=== PATIENT | male | born 1950 | race Caucasian/White ===

== ENCOUNTER 2019-06-03 06:06 | Emergency (ER) | payer MEDICARE, OTHER ==
[~2019-06-03] VITALS: Ht 170.2 cm; Wt 71.2 kg
[~2019-06-03 06:06] MED LIST: CENTRUM COMPLE1 EACH PO; PANTOPRAZOLE SO40 MG PO; VITAMIN D32000 UNIT PO
[2019-06-03 06:49] LABS: BILIRUBIN,URINE NEGATIVE (NEGATIVE); CLARITY,URINE CLEAR (CLEAR); COLOR,URINE YELLOW (YELLOW); KETONES,URINE NEGATIVE (NEGATIVE); LEUKOCYTE ESTERASE ,URINE NEGATIVE (NEGATIVE); NITRITE,URINE NEGATIVE (NEGATIVE); PROTEIN,URINE DIPSTICK NEGATIVE (NEGATIVE); URINE UROBILINOGEN 0.2 mg/dL (0.2 - 1)
[2019-06-03 07:06] LABS: BACTERIA,URINE RARE /HPF; EPITHELIAL CELLS,URINE FEW /LPF
[2019-06-03] MEDS ORDERED: KETOROLAC TROMETHAMINE 30 MG/ML VIAL IV STA (07:18)
[2019-06-03] MEDS ORDERED: SODIUM CHLORIDE 0.9% 1000ML 1,000 ML IV STA (07:18)
[2019-06-03] MEDS ORDERED: ONDANSETRON HCL INJ 2MG/ML 2ML 2 MG/ML VIAL IV STA (07:18)
[2019-06-03] MEDS ORDERED: FAMOTIDINE 20 MG/2 ML VIAL IV STA (07:25)
[2019-06-03] MEDS ORDERED: FAMOTIDINE 20 MG/2 ML VIAL IV ONE (07:32)
[2019-06-03 07:36] LABS: BASOPHILS % 0.4 % (0.0-1.0); EOSINOPHILS % 0.1 % (0.0-6.0); HEMATOCRIT 44.7 % (38.2-49.6); HEMOGLOBIN 15.6 g/dL (14.0-18.0); LYMPHOCYTES # (AUTO) 0.8 (1.0-3.2); LYMPHOCYTES % 7.6 % (18.0-39.1); MEAN CORPUSCULAR HEMOGLOBIN 31.1 pg (28-32); MEAN CORPUSCULAR HGB CONC 34.9 g/dL (31-35); MEAN CORPUSCULAR VOLUME 89.2 fL (81-99); MONOCYTES # (AUTO) 0.6 (0.2-0.8); MONOCYTES % 5.8 % (4.4-11.3); NEUTROPHILS % 85.7 % (38.7-80.0); PLATELET COUNT 162 x10e3/uL (140-360); RED BLOOD COUNT 5.01 x10e6/uL (4.3-5.7); RED CELL DISTRIBUTION WIDTH 12.8 % (11.7-14.4)
[2019-06-03] MEDS ORDERED: CEFTRIAXONE SOD 1 GM/NS 50 ML 50 ML IV ONE (07:45)
[2019-06-03 07:52] LABS: ALANINE AMINOTRANSFERASE 32 IU/L (0-55); ALBUMIN/GLOBULIN RATIO 1.3 (0.8-2.0); ALKALINE PHOSPHATASE 66 IU/L (40-150); ANION GAP 13.3 mmol/L (8-16); BLOOD UREA NITROGEN 15 mg/dL (7-26); BUN/CREATININE RATIO 18 (6-25); CALCIUM 9.3 mg/dL (8.4-10.2); CARBON DIOXIDE 25 mmol/L (22-29); CHLORIDE 102 mmol/L (98-107); CREATININE, SERUM 0.85 mg/dL (0.72-1.25); EST GLOMERULAR FILTRATION RATE > 60 ML/MIN (60-); GLUCOSE 127 mg/dL (74-118); POTASSIUM 4.3 mmol/L (3.5-5.1); SODIUM 136 mmol/L (136-145)
--- NOTE | 2019-06-03 08:49 | Diagnostic Imaging Report ---
EXAMINATION: CT of the abdomen and pelvis without contrast. TECHNIQUE: Spiral CT images of the abdomen and pelvis were performed from the lung bases to the lesser trochanters. No intravenous contrast was given per renal stone protocol. Coronal and sagittal reformatted images were obtained. COMPARISON: None. CLINICAL HISTORY:Right flank pain DISCUSSION: ABSENCE OF INTRAVENOUS CONTRAST DECREASES SENSITIVITY FOR DETECTION OF FOCAL LESIONS AND VASCULAR PATHOLOGY. ABDOMEN/PELVIS: LOWER THORAX: Mild bilateral lower lobe bronchiectasis, likely postinfectious. No pleural or pericardial effusion. HEPATOBILIARY:1.5 cm low-attenuation lesion in segment 3 comparison average internal attenuation 0 Hounsfield units, likely a cyst. Otherwise no focal hepatic lesion. No intrahepatic biliary dilatation. Radiopaque calculi within the gallbladder body. No wall thickening or pericholecystic inflammation. SPLEEN: No splenomegaly. PANCREAS: No focal masses or ductal dilatation. ADRENALS: No adrenal nodules. KIDNEYS/URETERS: 6 mm right upper pole calculus. 4 mm right ureterovesical junction calculus seen on series 3 image 144. No hydronephrosis, hydroureter, or perinephric inflammation. No left renal, ureteral, or bladder calculi. no gross renal mass lesion though evaluation is limited in the absence of intravenous contrast. PELVIC ORGANS/BLADDER: The urinary bladder is unremarkable. The prostate is enlarged measuring 6 cm transversely, with coarse central calcifications. PERITONEUM/RETROPERITONEUM: No free air or fluid. LYMPH NODES: No pelvic sidewall, retroperitoneal, or mesenteric lymphadenopathy. VESSELS: Limited evaluation without intravenous contrast. Atherosclerotic calcification of the abdominal aorta and major branch vessels without aneurysmal dilatation. Incidental note of [id number] origins of the splenic and common hepatic arteries from the abdominal aorta. GI TRACT: The large bowel shows no distention or wall thickening. The majority of the colon is collapsed and poorly evaluated. The appendix is normal. No small bowel dilatation to suggest obstruction. BONES AND SOFT TISSUES: No osseous destructive lesions. Multilevel degenerative disc changes and facet arthropathy of the lumbar spine. Bilateral pars defects at L5 without spondylolisthesis. No focal soft tissue abnormalities. IMPRESSION: 4 mm right ureterovesical junction calculus without hydroureteronephrosis or perinephric inflammation. Additional 6 mm nonobstructing right upper pole renal calculus. Atherosclerotic vascular disease. Cholelithiasis. Prostatomegaly. Signed by: Dr. Christopher Galdamez M.D. on 06/03/2019 8:45 AM
[2019-06-03 09:22] VITALS: BP 121/66
== END 2019-06-03 09:25 | disposition home or self-care (01) ==
LOC: ER 06:06
DX: M54.5 Low back pain (principal); R10.9 Unspecified abdominal pain; R11.0 Nausea; N20.2 Calculus of kidney with calculus of ureter; N40.0 Benign prostatic hyperplasia without lower urinary tract symptoms
CPT/HCPCS: 36415; 74176; 80053; 81001; 85025; 87086; 99284; J0696; J1885; J2405; J7030

== ENCOUNTER → 2019-08-06 | Day surgery (SDC) | payer OTHER ==
[2019-08-05 15:58] LABS: BASOPHILS # (AUTO) 0.1 (0.0-0.1); BASOPHILS % 0.8 % (0.0-1.0); EOSINOPHILS # (AUTO) 0.2 (0.0-0.4); EOSINOPHILS % 2.8 % (0.0-6.0); HEMATOCRIT 45.5 % (38.2-49.6); HEMOGLOBIN 15.5 g/dL (14.0-18.0); LYMPHOCYTES # (AUTO) 1.7 (1.0-3.2); LYMPHOCYTES % 27.1 % (18.0-39.1); MEAN CORPUSCULAR HEMOGLOBIN 30.6 pg (28-32); MEAN CORPUSCULAR HGB CONC 34.1 g/dL (31-35); MEAN CORPUSCULAR VOLUME 89.7 fL (81-99); MONOCYTES # (AUTO) 0.7 (0.2-0.8); MONOCYTES % 11.2 % (4.4-11.3); NEUTROPHILS # (AUTO) 3.7 (2.1-6.9); NEUTROPHILS % 57.8 % (38.7-80.0); PLATELET COUNT 148 x10e3/uL (140-360); RED BLOOD COUNT 5.07 x10e6/uL (4.3-5.7); RED CELL DISTRIBUTION WIDTH 12.6 % (11.7-14.4)
[2019-08-05 16:16] LABS: ALANINE AMINOTRANSFERASE 18 IU/L (0-55); ALBUMIN/GLOBULIN RATIO 1.5 (0.8-2.0); ALKALINE PHOSPHATASE 63 IU/L (40-150); ANION GAP 12.3 mmol/L (8-16); BLOOD UREA NITROGEN 16 mg/dL (7-26); BUN/CREATININE RATIO 19 (6-25); CALCIUM 9.3 mg/dL (8.4-10.2); CARBON DIOXIDE 30 mmol/L (22-29); CHLORIDE 100 mmol/L (98-107); CREATININE, SERUM 0.85 mg/dL (0.72-1.25); EST GLOMERULAR FILTRATION RATE > 60 ML/MIN (60-); GLUCOSE 92 mg/dL (74-118); POTASSIUM 4.3 mmol/L (3.5-5.1); SODIUM 138 mmol/L (136-145)
--- NOTE | 2019-08-05 16:26 | Diagnostic Imaging Report ---
EXAMINATION: CHEST 2 VIEWS, ABDOMEN-1VIEW (KUB) INDICATION: Pre-operative COMPARISON: KUB of 07/07/2019 FINDINGS: LINES/TUBES:None LUNGS:The lungs are moderately inflated. No focal consolidation or pulmonary edema. PLEURA:No pleural effusion or pneumothorax. MEDIASTINUM:The cardiomediastinal silhouette appears normal in size and shape. Atherosclerotic calcifications of the thoracic aorta. BONES/SOFT TISSUES:No acute osseous injury. ABDOMEN:Unchanged 5 mm right renal calculus. No radiographically apparent left renal calculus. Nonobstructive bowel gas pattern. No free air. Mild degenerative changes of the visualized spine. No acute osseous injury. IMPRESSION: No focal pneumonia or pulmonary edema. Unchanged 5 mm right renal calculus. No radiographically apparent left renal calculi. Signed by: Rich Santamaria MD on 08/05/2019 4:23 PM
[~2019-08-06] MED LIST changes: +B&O 60MG R/S 60 MG SUPP PR ONE; +CEFTRIAXONE SOD 1 GM/NS 50 ML 50 ML IV ONE; +CENTRUM SILVER1 EAC3 PO; +DEXAMETHASONE SOD PHOS INJ 4 MG/ML VIAL ONE; +FLOMAX0.4 MG PO; +HYDROCHLOROTH12.5 MG PO; +IOPAMIDOL 300MG/ML 50ML INFUS..BTL IV ONE; +LIDOCAINE HCL 2% LOCAL INJ 5 ML SDV VIAL INJ ONE; +OMEGA-31000 MG PO; +ONDANSETRON HCL INJ 2MG/ML 2ML 2 MG/ML VIAL ONE; +PROPOFOL IV EMULSION 10 MG/ML 20 ML VIAL ONE; +SEVOFLURANE INHAL SOLN 250 ML PEN BTL ONE
--- OUTSIDE RECORDS SUMMARY | 2019-08-06 05:59 | XMS REPORT ---
Author Author [facility] Address Unknown Phone Unavailable Care Team Providers Care Senior Teller Name Role Phone EMILY ORLANDO Unavailable Unavailable SWEET, Keyla LAIMARY Unavailable Unavailable Problems This patient has no known problems. Allergies, Adverse Reactions, Alerts This patient has no known allergies or adverse reactions. Medications This patient has no known medications. Results Test Description Test Time Test Comments Text Results Atomic Results Result Comments ABDOMEN-1VIEW (KUB) 2019-08-05 16:21:00 [place] [address] Patient Name: ETHEL NORTON MR #: [id number] : 1950 Age/Sex: 69/M Req #: [id number] Adm Physician: Ordered by: EMILY ORLANDO MD Report #: [id number] Location: OR Room/Bed: Procedure: [id number] DX/ABDOMEN-1VIEW (KUB) Exam Date: 08/05/19 Exam Time: 1600 REPORT STATUS: Signed EXAMINATION: CHEST 2 VIEWS, ABDOMEN-1VIEW (KUB) INDICATION: Pre-operative COMPARISON: KUB of 07/07/2019 FINDINGS: LINES/TUBES:None LUNGS:The lungs are moderately inflated. No focal consolidation or pulmonary edema. PLEURA:No pleural effusion or pneumothorax. MEDIASTINUM:The cardiomediastinal silhouette appears normal in size and shape. Atherosclerotic calcifications of the thoracic aorta. BONES/SOFT TISSUES:No acute osseous injury. ABDOMEN:Unchanged 5 mm right renal calculus. No radiographically apparent left renal calculus. Nonobstructive bowel gas pattern. No free air. Mild degenerative changes of the visualized spine. No acute osseous injury. IMPRESSION: No focal pneumonia or pulmonary edema. Unchanged 5 mm right renal calculus. No radiographically apparent left renal calculi. Signed by: Jac Musa MD on 08/05/2019 4:23 PM Dictated By: JAC MUSA MD 22 Transcribed By: RICARDO on 08/05/191622 COPY TO: EMILY ORLANDO MD CHEST 2 VIEWS 2019-08-05 16:21:00 [place] [address] Patient Name: ETHEL NORTON MR #: [id number] : 1950 Age/Sex: 69/M Req #: [id number] Adm Physician: Ordered by: EMILY ORLANDO MD Report #: [id number] Location: OR Room/Bed: Procedure: [id number] DX/CHEST 2 VIEWS Exam Date: 08/05/19 Exam Time: 1600 REPORT STATUS: Signed EXAMINATION: CHEST 2 VIEWS, ABDOMEN-1VIEW (KUB) IND ICATION: Pre-operative COMPARISON: KUB of 07/07/2019 FINDINGS: LINES/TUBES:None LUNGS:The lungs are moderately inflated. No focal consolidation or pulmonary edema. PLEURA:No pleural effusion or pneumothorax. MEDIASTINUM:The cardiomediastinal silhouette appears normal in size and shape. Atherosclerotic calcifications of the thoracic aorta. BONES/SOFT TISSUES:No acute osseous injury. ABDOMEN:Unchanged 5 mm right renal calculus. No radiographically apparent left renal calculus. Nonobstructive bowel gas pattern. No free air. Mild degenerative changes of the visualized spine. No acute osseous injury. IMPRESSION: No focal pneumonia or pulmonary edema. Unchanged 5 mm right renal calculus. No radiographically apparent left renal calculi. Signed by: Jac Musa MD on 08/05/2019 4:23 PM Dictated By: JAC MUSA MD 22 Transcribed By: RICARDO on 08/05/191622 COPY TO: EMILY ORLANDO MD ABDOMEN-1VIEW (KUB) 2019-07-07 16:19:00 [place] [address] Patient Name: ETHEL NORTON MR #: [id number] : 1950 Age/Sex: 69/M Req #: [id number] Adm Physician: Ordered by: EMILY ORLANDO MD Report #: [id number] Location: [facility] Room/Bed: Procedure: [id number] DX/ABDOMEN-1VIEW (KUB) Exam Date: 07/07/19 Exam Time: 1536 REPORT STATUS: Signed INDICATION: History of kidney stones. COMPARISON : Abdomen pelvis CT June 03, 2019 TECHNIQUE: Abdomen radiograph one view. FINDINGS / IMPRESSION: Small right kidney stone and small right ureterovesicular stone are again demonstrated. There is mild constipation and fecal impaction. Scoliosis also noted. Signed by: Nehemiah Fiore MD on 07/07/2019 4:22 PM Dictated By: NEHEMIAH FIORE 21 Transcribed By: RICARDO on 07/07/191621 COPY TO: EMILY ORLANDO MD CT ABDOMEN/PELVIS WO 2019-06-03 08:37:00 [facility] [address] [place] [address] Patient Name: ETHEL NORTON MR #: [id number] : 1950 Age/Sex: 69/M Req #: [id number] Adm Physician: Ordered by: HARLAN BAKER MD Report #: [id number] Location: ER Room/Bed: Procedure: [id number] CT/CT ABDOMEN/PELVIS WO Exam Date: 06/03/19 Exam Time: 0735 REPORT STATUS: Signed EXAMINATION: CT of the abdomen and pelvis without contr ast. TECHNIQUE: Spiral CT images of the abdomen and pelvis were performed from the lung bases to the lesser trochanters. No intravenous contrast was given per renal stone protocol. Coronal and sagittal reformatted images were obtained. COMPARISON: None. CLINICAL HISTORY:Right flank pain DISCUSSION: ABSENCE OF INTRAVENOUS CONTRAST DECREASES SENSITIVITY FOR DETECTION OF FOCAL LESIONS AND VASCULAR PATHOLOGY. ABDOMEN/PELVIS: LOWER THORAX: Mild bilateral lower lobe bronchiectasis, likely postinfectious. No pleural or pericardial effusion. HEPATOBILIARY:1.5 cm low-attenuation lesion in segment 3 comparison average internal attenuation 0 Hounsfield units, likely a cyst. Otherwise no focal hepatic lesion. No intrahepatic biliary dilatation. Radiopaque calculi within the gallbladder body. No wall thickening or pericholecystic inflammation. SPLEEN: No splenomegaly. PANCREAS: No focal masses or ductal dilatation. ADRENALS: No adrenal nodules. KIDNEYS/URETERS: 6 mm right upper pole calculus. 4 mm right ureterovesical junction calculus seen on series 3 image 144. No hydronephrosis, hydroureter, or perinephric inflammation. No left renal, ureteral, or bladder calculi. no gross renal mass lesion though evaluation is limited in the absence of intravenous contrast. PELVIC ORGANS/BLADDER: The urinary bladder is unremarkable. The prostate is enlarged measuring 6 cm transversely, with coarse central calcifications. PERITONEUM/RETROPERITONEUM: No free air or fluid. LYMPH NODES: No pelvic sidewall, retroperitoneal, or mesenteric lymphadenopathy. VESSELS: Limited evaluation without intravenous contrast. Atherosclerotic calcification of the abdominal aorta and major branch vessels without aneurysmal dilatation. Incidental note of [id number] origins of the splenic and common hepatic arteries from the abdominal aorta. GI TRACT: The large bowel shows no distention or wall thickening. The majority of the colon is collapsed and poorly evaluated. The appendix is normal. No small bowel dilatation to suggest obstruction. BONES AND SOFT TISSUES: No osseous destructive lesions. Multi level degenerative disc changes and facet arthropathy of the lumbar spine. Bilateral pars defects at L5 without spondylolisthesis. No focal soft tissue abnormalities. IMPRESSION: 4 mm right ureterovesical junction calculus without hydroureteronephrosis or perinephric inflammation. Additional 6 mm nonobstructing right upper pole renal calculus. Atherosclerotic vascular disease. Cholelithiasis. Prostatomegaly. Signed by: Dr. Ethel Santos M.D. on 06/03/2019 8:45 AM Dictated By: ETHEL SANTOS MD 4 Transcribed By: RICARDO on 06/03/19844 COPY TO: HARLAN BAKER MD
[2019-08-06 11:00] VITALS: BP 139/82
--- NOTE | 2019-09-10 01:25 | Operative Report ---
DATE OF PROCEDURE: 08/06/2019 SURGEON: Yovany Hanley MD PREOPERATIVE DIAGNOSES: 1. Microhematuria. 2. Right nephrolithiasis. 3. Right ureterolithiasis. 4. Hydronephrosis due to stone. POSTOPERATIVE DIAGNOSES: 1. Microhematuria. 2. Right nephrolithiasis. 3. Right ureterolithiasis. 4. Hydronephrosis due to stone. OPERATIONS PERFORMED: Note, these were all staged procedures as part of multi-staged and multi-step process in managing the patient's urolithiasis. 1. Right-sided extracorporeal shockwave lithotripsy (separate staged procedure performed for the right nephrolithiasis). 2. Cystourethroscopy with bilateral ureteral catheterization and retrograde ureteropyelography (separate procedure performed for the microhematuria). 3. Interpretation of retrograde ureteropyelography. 4. Supervision of fluoroscopy, no radiologist present. 5. Right ureteroscopy with stone manipulation and extraction (separate procedure performed for the right ureterolithiasis). 6. Cystourethroscopy with insertion of right indwelling ureteral stent (separate procedure performed to relieve the right-sided hydronephrosis). 7. Urological services with supervision and interpretation of ureteroscopy. 8. Interpretation of retrograde ureteropyelography. 9. Supervision of fluoroscopy, no radiologist present. ANESTHESIA: General. COMPLICATIONS: None. CLINICAL SUMMARY: Christopher Fu is a 69-year-old man with nephrolithiasis. He is brought for management. He is aware of the risks of bleeding, infection, injury to adjacent structures, need for additional procedures and elected to proceed. OPERATIVE PROCEDURE IN DETAIL: Informed consent was verified. Christopher Fu was properly identified, taken to the operating room, placed on the lithotripsy table in supine position. Anesthesia was uneventfully begun. The patient's 6 mm right upper calyceal stone was localized with biplanar fluoroscopy. A total of 3000 shocks were delivered with fragmentation noted. The patient was carefully and gently repositioned in dorsal lithotomy position with all pressure points well padded. His genitalia were prepared and draped in the usual sterile fashion. The cystoscope sheath with the visual obturator in place was atraumatically inserted into the patient's urethra and it was guided down to the unremarkable distal urethra to the bulbar region, where the wide caliber nonobstructing stricture went through the normal sphincteric region, went through the prostate bed, which was significant for visually obstructing BPH into the patient's bladder, where panendoscopy revealed normally positioned configured ureteral orifices with grade 1-2 trabeculations. Ureteral catheter was used to cannulate each ureter and retrograde ureteropyelography was performed. A guidewire was then placed into the right ureter and guided to the level of the patient's kidney. The ureteroscope was then placed alongside the guidewire and up into the right ureter, where we identified the stone. The stone was grasped with a basket and atraumatically extracted. With cystoscopic and fluoroscopic guidance, a right-sided indwelling ureteral stent was then placed. It was coiled in the patient's kidneys as well as the patient's bladder. The retaining suture was cut short. Interpretation of retrograde ureteropyelography contrast was instilled in retrograde fashion bilaterally. The left side was unremarkable. There were no tumors, no stones visible. There was no evidence of obstruction and hydronephrosis was not noted. The right hand side exhibited hydroureteronephrosis. There were filling defects corresponding to where we performed lithotripsy consistent with blood clots and stone debris. The stent was in good position and coiled into the patient's kidneys as well as the patient's bladder at the end of the case. The patient's bladder was drained. Cystoscope was withdrawn. Belladonna and opium suppository were placed revealing a large prostate, smooth, nonfluctuant without any nodules. The patient was then uneventfully reversed from anesthesia and taken to recovery room in stable condition. There were no complications to the procedure. He tolerated the procedure well. Explicit postop instructions were given. We will plan on returning the patient eventually to the operating room to remove his stent. We will perform ureteroscopy again and hopefully render the patient stent free and stone free. Yovany Hanley MD OH/MODL /[id number] cc: Rika Ruiz MD
== END | disposition home or self-care (01) ==
LOC: OR 05:57
PROVIDERS: ATTEND Urology
DX: N13.2 Hydronephrosis with renal and ureteral calculous obstruction (principal); N35.912 Unspecified bulbous urethral stricture, male; N40.1 Benign prostatic hyperplasia with lower urinary tract symptoms; N13.8 Other obstructive and reflux uropathy; N32.89 Other specified disorders of bladder; R39.14 Feeling of incomplete bladder emptying; R35.1 Nocturia; N52.9 Male erectile dysfunction, unspecified; R39.12 Poor urinary stream; R00.1 Bradycardia, unspecified; I10 Essential (primary) hypertension; Z01.810 Encounter for preprocedural cardiovascular examination; Z01.812 Encounter for preprocedural laboratory examination; Z01.818 Encounter for other preprocedural examination
CPT/HCPCS: 36415; 50590; 52332; 71046; 74018; 80053; 83970; 84550; 85025; 88300; 93005; C1758; C1769; C2617; J0696; J1100; J2001; J2405; J2704; Q9967

== ENCOUNTER → 2019-09-10 | Outpatient (CLI) | payer MEDICARE ==
[~2019-09-10] MED LIST changes: -B&O 60MG R/S 60 MG SUPP PR ONE; -CEFTRIAXONE SOD 1 GM/NS 50 ML 50 ML IV ONE; -DEXAMETHASONE SOD PHOS INJ 4 MG/ML VIAL ONE; -IOPAMIDOL 300MG/ML 50ML INFUS..BTL IV ONE; -LIDOCAINE HCL 2% LOCAL INJ 5 ML SDV VIAL INJ ONE; -ONDANSETRON HCL INJ 2MG/ML 2ML 2 MG/ML VIAL ONE; -PROPOFOL IV EMULSION 10 MG/ML 20 ML VIAL ONE; -SEVOFLURANE INHAL SOLN 250 ML PEN BTL ONE
--- NOTE | 2019-09-10 11:05 | Diagnostic Imaging Report ---
Exam: KUB - 2 views Indication: Renal calculus Comparison: KUB of 07/28/2019 Findings: Interval placement of right internal nephroureteral stent. Subtle 2 mm radiopaque density just above the proximal loop of the stent may represent a calculus. No radiographic apparent left renal calculi. Nonobstructive bowel gas pattern. No free air. Fluid within the pelvis. No acute osseous injury. Impression: Interval placement of right internal nephroureteral stent. 2 mm radiopaque density just above the proximal loop of the stent, likely a calculus. Signed by: Rich Santamaria MD on 09/10/2019 11:01 AM
== END ==
LOC: RAD 10:23
PROVIDERS: ATTEND Urology
DX: N20.0 Calculus of kidney (principal)
CPT/HCPCS: 74018

== ENCOUNTER → 2019-09-12 | Day surgery (SDC) | payer MEDICARE ==
[2019-09-10 09:33] LABS: BASOPHILS # (AUTO) 0.1 (0.0-0.1); BASOPHILS % 0.7 % (0.0-1.0); EOSINOPHILS # (AUTO) 0.2 (0.0-0.4); EOSINOPHILS % 3.3 % (0.0-6.0); HEMATOCRIT 44.2 % (38.2-49.6); HEMOGLOBIN 15.1 g/dL (14.0-18.0); LYMPHOCYTES # (AUTO) 1.5 (1.0-3.2); LYMPHOCYTES % 22.5 % (18.0-39.1); MEAN CORPUSCULAR HEMOGLOBIN 30.4 pg (28-32); MEAN CORPUSCULAR HGB CONC 34.2 g/dL (31-35); MEAN CORPUSCULAR VOLUME 88.9 fL (81-99); MONOCYTES # (AUTO) 0.7 (0.2-0.8); MONOCYTES % 10.8 % (4.4-11.3); NEUTROPHILS # (AUTO) 4.2 (2.1-6.9); NEUTROPHILS % 62.4 % (38.7-80.0); PLATELET COUNT 149 x10e3/uL (140-360); RED BLOOD COUNT 4.97 x10e6/uL (4.3-5.7); RED CELL DISTRIBUTION WIDTH 12.5 % (11.7-14.4)
[2019-09-10 09:52] LABS: ANION GAP 11.2 mmol/L (8-16); BLOOD UREA NITROGEN 16 mg/dL (7-26); BUN/CREATININE RATIO 18 (6-25); CALCIUM 8.8 mg/dL (8.4-10.2); CARBON DIOXIDE 29 mmol/L (22-29); CHLORIDE 103 mmol/L (98-107); CREATININE, SERUM 0.87 mg/dL (0.72-1.25); EST GLOMERULAR FILTRATION RATE > 60 ML/MIN (60-); GLUCOSE 91 mg/dL (74-118); POTASSIUM 4.2 mmol/L (3.5-5.1); SODIUM 139 mmol/L (136-145)
[~2019-09-12] MED LIST changes: +B&O 60MG R/S 60 MG SUPP PR ONE; +CEFTRIAXONE SOD 1 GM/NS 50 ML 50 ML IV ONE; +DEXAMETHASONE SOD PHOS INJ 4 MG/ML VIAL ONE; +FENTANYL CITRATE/PF 100MCG/2 ML INJ ONE; +IOPAMIDOL 300MG/ML 50ML INFUS..BTL IV ONE; +LIDOCAINE HCL 2% JELLY 5 ML TUBE ONE; +LIDOCAINE HCL 2% LOCAL INJ 5 ML SDV VIAL INJ ONE; +MIDAZOLAM HCL 2 MG/2 ML VIAL ONE; +ONDANSETRON HCL INJ 2MG/ML 2ML 2 MG/ML VIAL ONE; +PROPOFOL IV EMULSION 10 MG/ML 20 ML VIAL ONE; +SEVOFLURANE INHAL SOLN 250 ML PEN BTL ONE
[2019-09-12 11:50] VITALS: BP 145/82
--- NOTE | 2019-10-05 20:32 | Operative Report ---
DATE OF PROCEDURE: 09/12/2019 SURGEON: Yovany Hanley MD PREOPERATIVE DIAGNOSES: 1. Right nephrolithiasis. 2. Right indwelling ureteral stent. POSTOPERATIVE DIAGNOSES: 1. Right nephrolithiasis. 2. Right indwelling ureteral stent. OPERATIONS PERFORMED: Note, these were all staged procedures as part of multi-staged and multi-step process in managing the patient's urolithiasis. 1. Cystourethroscopy with complicated removal of right indwelling ureteral stent (separate procedure performed for the diagnosis of stent, done with separate scope). 2. Right ureteroscopy with stone manipulation and extraction (separate procedure performed for the right nephrolithiasis). 3. Radiological services with supervision and interpretation of ureteroscopy. 4. Interpretation of retrograde ureteropyelography. 5. Supervision of fluoroscopy, no radiologist present. ANESTHESIA: General. COMPLICATIONS: None. CLINICAL SUMMARY: Christopher Fu is a 69-year-old man with the above preoperative diagnoses. He is brought for the above procedures. He is aware of the risks of bleeding, infection, injury to adjacent structures, need for additional procedures, and elected to proceed. OPERATIVE PROCEDURE IN DETAIL: Informed consent was verified. Christopher Fu was properly identified, taken to the operating room, and placed on the table in supine position. Anesthesia was uneventfully begun. The patient was then carefully and gently repositioned in dorsal lithotomy position with all pressure points well padded. His genitalia were prepared and draped in usual sterile fashion. The cystoscope sheath with a visual obturator in place was atraumatically inserted in the patient's urethra, it was guided unremarkable distal urethra through the normal sphincteric region, through the prostate bed, which was significant for visually obstructing BPH and into the patient's bladder, where there were trabeculations noted. A guidewire was then placed alongside the stent and guided to the level of the patient's kidney. The stent was then grasped, completely removed and discarded. Flexible ureteroscope was then placed over the guidewire and guided to the level of the patient's kidney. Panendoscopy revealed Gary's plaques, but no suspicious lesions. There was only 1 stone that was significant sized that could be identified. The stone was grasped with Nitinol tipless basket and extracted atraumatically. Carefully examining the ureter, which exhibited no residual stones, no strictures, and no suspicious lesions. Interpretation of retrograde ureteropyelography contrast was instilled in a retrograde fashion via the ureteroscope. There was fullness with chronic appearing of the right-sided collecting system, most likely from the indwelling stent and reflux up the stent. Nevertheless, there was unobstructed drainage observed fluoroscopically. The patient's bladder was drained and cystoscope was withdrawn. A belladonna and opium suppository were placed revealing a 45 g prostate, that is smooth and nonfluctuant without any nodules. The patient was then uneventfully reversed from anesthesia and taken to recovery in stable condition. There were no complications to the procedure. He tolerated the procedure well. Plans will be to follow the patient up in the office and of course we will proceed with performing metabolic stone workup and ongoing urological followup. Yovany Hanley MD [place]/MODL /[id number] cc: Rika Ruiz MD
== END | disposition home or self-care (01) ==
LOC: OR 07:49
PROVIDERS: ATTEND Urology
DX: N20.0 Calculus of kidney (principal); Z46.6 Encounter for fitting and adjustment of urinary device; N20.1 Calculus of ureter; N32.89 Other specified disorders of bladder; N28.89 Other specified disorders of kidney and ureter; N40.1 Benign prostatic hyperplasia with lower urinary tract symptoms; R39.14 Feeling of incomplete bladder emptying; R35.1 Nocturia; R39.12 Poor urinary stream; N52.9 Male erectile dysfunction, unspecified; Z01.812 Encounter for preprocedural laboratory examination
CPT/HCPCS: 36415; 52352; 74420; 80048; 85025; 88300; J0696; J1100; J2001 ×2; J2250; J2405; J2704; J3010; Q9967

== ENCOUNTER → 2020-05-06 | Outpatient (CLI) | payer MEDICARE, OTHER ==
[~2020-05-06] MED LIST changes: +ALLEGRA D; +AZITHROMYCIN250 MG PO; -B&O 60MG R/S 60 MG SUPP PR ONE; +BROMFED DM COU118 ML PO; -CEFTRIAXONE SOD 1 GM/NS 50 ML 50 ML IV ONE; -DEXAMETHASONE SOD PHOS INJ 4 MG/ML VIAL ONE; -FENTANYL CITRATE/PF 100MCG/2 ML INJ ONE; -IOPAMIDOL 300MG/ML 50ML INFUS..BTL IV ONE; -LIDOCAINE HCL 2% JELLY 5 ML TUBE ONE; -LIDOCAINE HCL 2% LOCAL INJ 5 ML SDV VIAL INJ ONE; -MIDAZOLAM HCL 2 MG/2 ML VIAL ONE; +OBREDON 2.5-20118 ML PO; -ONDANSETRON HCL INJ 2MG/ML 2ML 2 MG/ML VIAL ONE; +PANTOPRAZOLE SO20 MG PO; +PROAIR DIGIHAL90 MCG INH; -PROPOFOL IV EMULSION 10 MG/ML 20 ML VIAL ONE; +ROBITUSSIN COU118 M4 PO; -SEVOFLURANE INHAL SOLN 250 ML PEN BTL ONE
[2020-05-06 09:47] LABS: BASOPHILS # (AUTO) 0.1 (0.0-0.1); BASOPHILS % 0.9 % (0.0-1.0); EOSINOPHILS # (AUTO) 0.3 (0.0-0.4); EOSINOPHILS % 3.7 % (0.0-6.0); HEMATOCRIT 46.1 % (38.2-49.6); HEMOGLOBIN 15.6 g/dL (14.0-18.0); LYMPHOCYTES # (AUTO) 1.6 (1.0-3.2); LYMPHOCYTES % 23.4 % (18.0-39.1); MEAN CORPUSCULAR HEMOGLOBIN 30.6 pg (28-32); MEAN CORPUSCULAR HGB CONC 33.8 g/dL (31-35); MEAN CORPUSCULAR VOLUME 90.4 fL (81-99); MONOCYTES # (AUTO) 0.8 (0.2-0.8); MONOCYTES % 12.3 % (4.4-11.3); NEUTROPHILS % 59.3 % (38.7-80.0); PLATELET COUNT 130 x10e3/uL (140-360); RED CELL DISTRIBUTION WIDTH 12.7 % (11.7-14.4)
== END ==
LOC: DX 14:06 → EDSTATUS 05-10 07:30
PROVIDERS: ATTEND Internal Medicine Gastroenterology
DX: Z01.812 Encounter for preprocedural laboratory examination (principal); Z20.828 Contact with and (suspected) exposure to other viral communicable diseases; Z01.818 Encounter for other preprocedural examination; Z86.010 Personal history of colon polyps
CPT/HCPCS: 36415; 85025; 93005; U0002

== ENCOUNTER 2020-05-16 14:39 | Inpatient (IN) | payer MEDICARE ==
[~2020-05-16] VITALS: Ht 170.2 cm; Wt 71.2 kg
[~2020-05-16 14:39] MED LIST changes: -AZITHROMYCIN250 MG PO; -BROMFED DM COU118 ML PO; -OBREDON 2.5-20118 ML PO; -PANTOPRAZOLE SO20 MG PO; -PROAIR DIGIHAL90 MCG INH; -ROBITUSSIN COU118 M4 PO
--- OUTSIDE RECORDS SUMMARY | 2020-05-16 14:56 | XMS REPORT | Continuity of Care Document ---
Author Author [facility] ETHEL Vincent Organization [employer] Address Unknown Phone Unavailable Care Team Providers Care Rn Oncology Clinical Name Role Phone [employer] Unavailable Un available Problems Problem Status Onset Date Classification Date Reported Comments Source 786.2 - COUGH Active 04/01/2015 [facility] Medications No Data Provided for This Section Allergies, Adverse Reactions, Alerts No Known Medication Allergies Immunizations No Data Provided for This Section Results No Data Provided for This Section Pathology Reports No Data Provided for This Section Diagnostic Reports Report Value Date Source Chest 2 views DX Exam: Two-vie w chest x-ray Reason for Exam: V70.0 Routine General Medical Examination at a Health Care Facility, cough Comparison Exam: None Discussion: Cardiomediastinal silhouette is within normal limits. Both hemidiaphragms well visualized. No pulmonary edema or pleural effusions. No focal lung consolidations. Trachea is midline. No acute bony abnormalities. Impression: 1. No acute cardiopulmonary abnormaliti es. 04/01/2015 [facility] Knee 1-2 Views unilateral DX E xam: Left knee x-ray, 3 views Reason for Exam: Left knee pain Comparison Exam: none Discussion: No fractures or dislocations are seen of the left knee. Mild joint space narrowing seen within the medial compartment. No intraosseous lesions. No radiopaque foreign bodies. Impression: 1. No acute bony abnormalities seen wit hin the left knee. 04/01/2015 [facility] Consultation Notes No Data Provided for This Section Discharge Summaries No Data Provided for This Section History and Physicals No Data Provided for This Section Vital Signs No Data Provided for This Section Encounters Location Location Details Encounter Type Encounter Number Reason For Visit Attending Provider ADM Date DC Date Status Source [facility] [place] Out[facility] Diag Services [id number] Chris Mistry 04/01/2015 04/02/2015 [facility] Procedures No Data Provided for This Section Assessment and Plan No Data Provided for This Section Plan of Care No Data Provided for This Section Social History Social History Date Source No data available for this section 04/02/2015 KENNETH Amanda Family History No Data Provided for This Section Advance Directives No Data Provided for This Section Functional Status No Data Provided for This Section
--- OUTSIDE RECORDS SUMMARY | 2020-05-16 14:57 | XMS REPORT | Continuity of Care Document ---
Author Author [facility] t Organization [facility] Address [address] [place] [address] [address]. [address] [place] [address] Phone Unavailable Care Team Providers Care Sales Project Coordinator Name Role Phone TIANNA SCOTT MD PCP HAMPEL, EMILY Attphys Unavailable SWEET, A LAIRD Attphys Unavailable Mistry, Carlin Chris Attphys Payers Payer Name Policy Type Policy Number Effective Date Expiration Date Sudhakar lopez [facility] Medicare Complete [id number] CH I [facility] Problems Condition Name Condition Details Condition Category Status Onset Date Resolution Date Last Treatment Date Treating Clinician Comments Source 786.2 - COUGH 786. 2 - COUGH Active 04/01/2015 MICHAEL Amanda Diagnosis Active 2015-04-01 00:01:00 2015-04-01 08:11:00 [facility] Allergies, Adverse Reactions, Alerts This patient has no known allergies or adverse reactions. Social History Social Habit Start Date Stop Date Quantity Comments Source Social History 2015-04-02 04:59:00 2015-04-02 04:59:00 [facility] Medications Ordered Medication Name Filled Medication Name Start Date Stop Da te Current Medication? Ordering Clinician Indication Dosage Frequency Signature (SIG) Comments Components Source Cholecalciferol (Vitamin D3) (Vitamin D3) 2,000 Unit C apsule Cholecalciferol (Vitamin D3) (Vitamin D3) 2,000 Unit Capsule Yes 2000 Daily [facility] Multivitamin/Iron/Folic Acid (Centrum Complete Multivi t Tab) 1 Each Tablet Multivitamin/Iron/Folic Acid ([facility]ivit Tab) 1 Each Tablet Yes 1 Daily [facility] Pantoprazole Sodium (Protonix) 40 Mg Tablet. Pantopr azole Sodium (Protonix) 40 Mg Tablet. Yes 40 Daily [facility] Procedures Procedure Date / Time Performed Performing Clinician Sour e CT of abdomen and pelvis without contrast 2019-06-03 00:00:00 KALYN HARLAN CAO [facility] COLONOSCOPY W/LESION REMOVAL 2018-10-11 00:00:00 HERMELINDA SHARMA [facility] COLONOSCOPY W/LESION REMOVAL 2018-10-11 00:00:00 HERMELINDA SHARMA [facility] Encounters Start Date/Time End Date/Time Encounter Type Admission Type Attendi [facility] Care Department Encounter ID Source 2019-06-03 06:06:00 2019-06-03 09:25:00 Departed Emergency Room 1 HARLAN BAKER [facility] [id number] [facility] 2018-10-11 09:30:00 2018-10-11 09:30:00 Registered Surgical Day Care [facility] [id number] [facility] 2015-04-01 08:01:00 2015-04-01 23:59:00 Outpatient Sanket Mistry [facility] [id number] Results Test Description Test Time Test Comments Results Result Comments Source ABDOMEN-1VIEW (KUB) 2019-09-10 10:58:00 [place] [address] Patient Name: ETHEL NORTON MR #: [id number] : 1950 Age/Sex: 69/M Req #: [id number] Adm Physician: Ordered by: EMILY ORLANDO MD Report #: [id number] Location: [facility] Room/Bed: Procedure: [id number] DX/ABDOMEN-1VIEW (KUB) Exam Date: 09/10/19 Exam Time: 1039 REPORT STATUS: Signed Exam: KUB - 2 views Indication: Renal calculus Comparison: KUB of 07/28/2019 Findings: Interval placement of right internal nephroureteral stent. Subtle 2 mm radiopaque density just above the proximal loop of the stent may represent a calculus. No radiographic apparent left renal calculi. Nonobstructive bowel gas pattern. No free air. Fluid within the pelvis. No acute osseous injury. Impression: Interval placement of right internal nephroureteral stent. 2 mm radiopaque density just above the proximal loop of the stent, likely a calculus. Signed by: Jac Musa MD on 09/10/2019 11:01 AM Dictated By: JAC MUSA MD 1101 Transcribed By: RICARDO on 09/10/19 1101 COPY TO: EMILY ORLANDO MD ABDOMEN-1VIEW (KUB) 2019-08-05 16:21:00 [place] [address] Patient Name: ETHEL NORTON MR #: [id number] : 1950 Age/Sex: 69/M Req #: [id number] Adm Physician: Ordered by: EMILY ORLANDO MD Report #: [id number] Location: OR Room/Bed: Procedure: [id number] DX/ABDOMEN-1VIEW (KUB) Exam Date: 08/05/19 Exam Time: 1600 REPORT STATUS: Signed EXAMINATION: CHEST 2 VIEWS, ABDOMEN- 1VIEW (KUB) INDICATION: Pre-operative COMPARISON: KUB of 07/07/2019 [...] ORLANDO MD CHEST 2 VIEWS 2019-08-05 16:21:00 [place] [address] Patient Name: ETHEL NORTON MR #: [id number] : 1950 Age/Sex: 69/M Req #: [id number] Adm Physician: Ordered by: EMILY ORLANDO MD Report #: [id number] Location: OR Room/Bed: Procedure: [id number] DX/CHEST 2 VIEWS Exam Date: 08/05/19 Exam Time: 1600 REPORT STATUS: Signed EXAMINATION: CHEST 2 VIEWS, ABDOMEN- 1VIEW (KUB) INDICATION: Pre-operative COMPARISON: KUB of 07/07/2019 [...] 08/05/191622 COPY TO: EMILY ORLANDO MD ABDOMEN-1VIEW (KU) 2019-07-07 16:19:00 [place] [address] Patient Name: ETHEL NORTON MR #: [id number] : 1950 Age/Sex: 69/M Req #: [id number] Adm Physician: Ordered by: EMILY ORLANDO MD Report #: [id number] Location: [facility] Room/Bed: Procedure: [id number] DX/ABDOMEN-1VIEW (KU) Exam Date: 07/07/19 Exam Time: 1536 REPORT STATUS: Signed INDICATION: History of kidney stones. COMPARISON: Abdomen pelvis CT June 03, 2019 TECHNIQUE: [...] ORLANDO MD CT ABDOMEN/PELVIS WO 2019-06-03 08:37:00 [place] [id number] [place] [address] Patient Name: ETHEL NORTON MR #: [id number] : 1950 Age/Sex: 69/M Req #: [id number] Adm Physician: Ordered by: HARLAN BAKER MD Report #: [id number] Location: ER Room/Bed: Procedure: [id number] CT/CT ABDOMEN/PELVIS WO Exam Date: 06/03/19 Exam Time: 0735 REPORT STATUS: Signed EXAMINATION: CT of the abdomen and pelvis without contrast. TECHNIQUE: Spiral CT images of the abdomen [...] likely postinfectious. No pleural or pericardial effusion. HEPATOBILIARY :1.5 cm low-attenuation lesion in segment 3 comparison [...] vessels without aneurysmal dilatation. Incidental note of hilm-to-ddyf origins of the splenic and common hepatic [...] 8:45 AM Dictated By: ETHEL SANTOS MD 0845 Transcribed By: RICARDO on 06/03/19 0845 COPY TO: HARLAN BAKER MD Sodium Level 2019-06-03 07:53:00 Test Item Sodium Level (test code = 2951-2) 136 136-145 [facility] Nnfzd5152-31-57 07:53:00* Test Item Value Reference Range Interpretation Comments Potassium Level (test code = 2823-3) 4.3 3.5-5.1 [facility] CenterChloride Alaek2447-29-00 07:53:00* Test Item Value Reference Range Interpretation Comments Chloride Level (test code = 2075-0) 102 98-107 [facility] CenterCarbon Dioxide Iecan8437-10-82 07:53:00* Test Item Value Reference Range Interpretation Comments Carbon Dioxide Level (test code = 2027-9) 25 -29 [facility] CenterAnion Svo0261-47-42 07:53:00* Test Item Value Reference Range Interpretation Comments Anion Gap (test code = 34923-8) 13.3 8-16 [facility] CenterBlood Urea Lnpyzkau6633-47-29 07:53:00* Test Item Value Reference Range Interpretation Comments Blood Urea Nitrogen (test code = 3094-0) 15 7-26 [facility] CenterCreatinine2019-11-26 07:53:00* Test Item Value Reference Range Interpretation Comments Creatinine (test code = 2160-0) 0.85 0.72-1.25 [facility] CenterBUN/Creatinine Mrwqk0350-09-38 07:53:00* Test Item Value Reference Range Interpretation Comments BUN/Creatinine Ratio (test code = 3097-3) 18 6- [facility] CenterEstimat Glomerular Filtration Rate 2019-06-03 07:53:00* Test Item Value Reference Range Interpretation Comments Estimat Glomerular Filtration Rate (test code = 297341559) > 60 >60 Ranges were taken from the National Kidney Disease Education Program and the [facility] Foundation literature.Reference ranges:60 or greater: Faidtg33-65 ( for 3 consecutive months): Chronic kidney disease 15 or less: Kidney failureGuadalupe Regional Medical CenterGlucose Vdwmn9768-05-16 07:53:00* Test Item Value Reference Range Interpretation Comments Glucose Level (test code = OJA3046) 127 74-118 H [facility] CenterCalcium Cmqpe2030-26-25 07:53:00* Test Item Value Reference Range Interpretation Comments Calcium Level (test code = 01083-9) 9.3 8.4-10.2 [facility] CenterTotal Etltiajif0685-77-49 07:53:00* Test Item Value Reference Range Interpretation Comments Total Bilirubin (test code = 1975-2) 0.4 0.2-1.2 [facility] CenterAspartate Amino Transf (AST/SGOT) 2019-06-03 07:53:00* Test Item Value Reference Range Interpretation Comments Aspartate Amino Transf (AST/SGOT) (test code = Aspartate Amino Transf (AST/SGOT)) 34 5-34 [facility] CenterAlanine Aminotransferase (ALT/SGPT) 2019-06-03 07:53:00* Test Item Value Reference Range Interpretation Comments Alanine Aminotransferase (ALT/SGPT) (test code = 1742-6) 32 0-55 [facility] CenterTotal Taeyjpb0879-82-44 07:53:00* Test Item Value Reference Range Interpretation Comments Total Protein (test code = 2885-2) 7.2 6.5-8.1 [facility] CenterAlbumin2019-11-26 07:53:00* Test Item Value Reference Range Interpretation Comments Albumin (test code = 1751-7) 4.0 3.5-5.0 [facility] CenterGlobulin2019-11-26 07:53:00* Test Item Value Reference Range Interpretation Comments Globulin (test code = 07991-9) 3.2 2.3-3.5 [facility] CenterAlbumin/Globulin Owife3276-97-38 07:53:00 * Test Item Value Reference Range Interpretation Comments Albumin/Globulin Ratio (test code = 1759-0) 1.3 0.8-2.0 [facility] CenterAlkaline Unadkcindrj0458-69-80 07:53:00* Test Item Value Reference Range Interpretation Comments Alkaline Phosphatase (test code = 6768-6) 66 40-150 [facility] CenterWhite Blood Cthpq5616-91-56 07:38:00* Test Item Value Reference Range Interpretation Comments White Blood Count (test code = 6690-2) 10.45 4.8-10.8 [facility] CenterRed Blood Takps0794-35-37 07:38:00* Test Item Value Reference Range Interpretation Comments Red Blood Count (test code = 789-8) 5.01 4.3-5.7 [facility] CenterHemoglobin2019-11-26 07:38:00* Test Item Value Reference Range Interpretation Comments Hemoglobin (test code = 63538-7) 15.6 14.0-18.0 [facility] CenterHematocrit2019-11-26 07:38:00* Test Item Value Reference Range Interpretation Comments Hematocrit (test code = 4544-3) 44.7 38.2-49.6 [facility] CenterMean Corpuscular Etvcqe2615-68-24 07:38:00* Test Item Value Reference Range Interpretation Comments Mean Corpuscular Volume (test code = 787-2) 89.2 81-99 [facility] CenterMean Corpuscular Hmoywmgtzm8522-29-47 07:38:00* Test Item Value Reference Range Interpretation Comments Mean Corpuscular Hemoglobin (test code = 785-6) 31.1 28-32 [facility] CenterMean Corpuscular Hemoglobin Concent 2019-06-03 07:38:00* Test Item Value Reference Range Interpretation Comments Mean Corpuscular Hemoglobin Concent (test code = 786-4) 34.9 31-35 [facility] CenterRed Cell Distribution Kqacb1364-20-43 07:38:00* Test Item Value Reference Range Interpretation Comments Red Cell Distribution Width (test code = 52672-1) 12.8 11.7 -14.4 [facility] CenterPlatelet Yhzwq1585-33-72 07:38:00* Test Item Value Reference Range Interpretation Comments Platelet Count (test code = 777-3) 162 140-360 [facility] CenterNeutrophils (%) (Auto)2019-06-03 07:38:00 * Test Item Value Reference Range Interpretation Comments Neutrophils (%) (Auto) (test code = 80371-1) 85.7 38.7-80.0 H [facility] CenterLymphocytes (%) (Auto)2019-06-03 07:38:00 * Test Item Value Reference Range Interpretation Comments Lymphocytes (%) (Auto) (test code = 736-9) 7.6 18.0-39.1 L [facility] CenterMonocytes (%) (Auto)2019-06-03 07:38:00* Test Item Value Reference Range Interpretation Comments Monocytes (%) (Auto) (test code = 5905-5) 5.8 4.4-11.3 [facility] CenterEosinophils (%) (Auto)2019-06-03 07:38:00 * Test Item Value Reference Range Interpretation Comments Eosinophils (%) (Auto) (test code = 713-8) 0.1 0.0-6.0 [facility] CenterBasophils (%) (Auto)2019-06-03 07:38:00* Test Item Value Reference Range Interpretation Comments Basophils (%) (Auto) (test code = 706-2) 0.4 0.0-1.0 [facility] CenterIM GRANULOCYTES %2019-06-03 07:38:00* Test Item Value Reference Range Interpretation Comments IM GRANULOCYTES % (test code = IM GRANULOCYTES %) 0.4 0.0- 1.0 [facility] CenterNeutrophils # (Auto)2019-06-03 07:38:00* Test Item Value Reference Range Interpretation Comments Neutrophils # (Auto) (test code = 751-8) 9.0 2.1-6.9 H [facility] CenterLymphocytes # (Auto)2019-06-03 07:38:00* Test Item Value Reference Range Interpretation Comments Lymphocytes # (Auto) (test code = 19391-2) 0.8 1.0-3.2 L [facility] CenterMonocytes # (Auto)2019-06-03 07:38:00* Test Item Value Reference Range Interpretation Comments Monocytes # (Auto) (test code = 742-7) 0.6 0.2-0.8 [facility] CenterEosinophils # (Auto)2019-06-03 07:38:00* Test Item Value Reference Range Interpretation Comments Eosinophils # (Auto) (test code = 711-2) 0.0 0.0-0.4 [facility] CenterBasophils # (Auto)2019-06-03 07:38:00* Test Item Value Reference Range Interpretation Comments Basophils # (Auto) (test code = 704-7) 0.0 0.0-0.1 [facility] CenterAbsolute Immature Granulocyte (auto 2019-06-03 07:38:00* Test Item Value Reference Range Interpretation Comments Absolute Immature Granulocyte (auto (stephani t code = Absolute Immature Granulocyte (auto) 0.04 0-0.1 [facility] CenterUrine JJF1663-61-32 07:06:00* Test Item Value Reference Range Interpretation Comments Urine WBC (test code = 5821-4) 11-20 0-5 H [facility] CenterUrine IXA5616-47-29 07:06:00* Test Item Value Reference Range Interpretation Comments Urine RBC (test code = 58106-5) 6-10 0-5 H [facility] CenterUrine Kgfoausz4216-47-25 07:06:00* Test Item Value Reference Range Interpretation Comments Urine Bacteria (test code = 95907-2) RARE NONE [facility] CenterUrine Epithelial Cdedn3588-98-59 07:06:00 * Test Item Value Reference Range Interpretation Comments Urine Epithelial Cells (test code = 16245-0) FEW NONE [facility] CenterUrine Dbzvg6548-50-97 06:57:00* Test Item Value Reference Range Interpretation Comments Urine Color (test code = 5778-6) YELLOW YELLOW [facility] CenterUrine Fiviggr8958-43-28 06:57:00* Test Item Value Reference Range Interpretation Comments Urine Clarity (test code = 95553-1) CLEAR CLEAR [facility] CenterUrine Specific Jeecqvz4239-56-57 06:57:00 * Test Item Value Reference Range Interpretation Comments Urine Specific [place] (test code = 5811-5) >=1.030 1.010-1.02 5 [facility] CenterUrine oZ9496-80-78 06:57:00* Test Item Value Reference Range Interpretation Comments Urine pH (test code = 44652-4) 6 5-7 [facility] CenterU[facility] Leukocyte Icaamzlc2443-98-75 06:57:00* Test Item Value Reference Range Interpretation Comments Urine Leukocyte Esterase (test code = 85589-3) NEGATIVE NEGATIV E [facility] CenterUrine Nxemgau1833-72-89 06:57:00* Test Item Value Reference Range Interpretation Comments Urine Nitrite (test code = 45484-1) NEGATIVE NEGATIVE [facility] CenterUrine Oaeewhe7390-91-47 06:57:00* Test Item Value Reference Range Interpretation Comments Urine Protein (test code = 77520-8) NEGATIVE NEGATIVE [facility] CenterUrine Glucose (UA)2019-06-03 06:57:00* Test Item Value Reference Range Interpretation Comments Urine Glucose (UA) (test code = 76390-0) NEGATIVE NEGATIVE [facility] CenterUrine Bhcloni9318-82-40 06:57:00* Test Item Value Reference Range Interpretation Comments Urine Ketones (test code = 73652-4) NEGATIVE NEGATIVE [facility] CenterUrine Dynuwsgztzmf2955-38-31 06:57:00* Test Item Value Reference Range Interpretation Comments Urine Urobilinogen (test code = 98247-5) 0.2 0.2-1 [facility] CenterUrine Lmweluxzk9080-80-30 06:57:00* Test Item Value Reference Range Interpretation Comments Urine Bilirubin (test code = 1977-8) NEGATIVE NEGATIVE [facility] CenterUrine Amntw5162-24-60 06:57:00* Test Item Value Reference Range Interpretation Comments Urine Blood (test code = 41637-7) 1+ NEGATIVE [facility]
--- NOTE | 2020-05-16 15:06 | Emergency Department Note ---
History of Present Illnes History of Present Illness Chief Complaint: COVID PUI History of Present Illness This is a 70 year old male arrives to the ED shortness of breath after testing positive for the coronavirus.. Past Medical/Family History Physician Review I have reviewed the patient's past medical and family history. Any updates have been documented here. Past Medical History Past Medical History: None Past Surgical History: None Other Last Tetanus: UNK Physical Exam Related Data Allergies: Coded Allergies: No Known Drug Allergies (Verified Allergy, Unknown, 04/14/10) Uncoded Allergies: NKDA (Allergy, Mild, 03/31/09) Physical Exam CONSTITUTIONAL HENT EYES NECK PULMONARY CARDIOVASCULAR GASTROINTESTINAL GENITOURINARY SKIN MUSCULOSKELETAL NEUROLOGICAL PSYCHOLOGICAL Assessment & Plan Medical Decision Making MDM Patient presentation suspicious for COVID-19 infection. Patient requires admission for their symptoms given marked hypoxia. Differential diagnosis inc ludes other viral causes of LRTI, pneumonia, less likely PE, PTX, primary cardiovascular causes, bacterial sepsis, or other severe metabolic/ischemic derangements. Patient confirmed Covid positive, required 4 L of oxygen via nasal cannula for respiratory support. Assessment & Plan Final Impression: (1) Acute respiratory disease due to COVID-19 virus Depart Disposition: ADMITTED Home Meds Reported Medications [Viridiana D] No Conflict Check 05/04/20 Mu-Vits-Min Th/Lycopene/Lutein (CENTRUM SILVER TABLET) 1 Each Tablet, 1 TAB PO DAILY 09/10/19 Tamsulosin Hcl* (FLOMAX*) 0.4 Mg Cap, 0.4 MG PO DAILY, #30 CAP 08/05/19 Hydrochlorothiazide (HYDROCHLOROTHIAZIDE) 12.5 Mg Tablet, 12.5 MG PO DAILY 08/05/19 Cholecalciferol (Vitamin D3) (VITAMIN D3) 2,000 Unit Capsule, 2000 UNITS PO DAILY 10/07/18 SARAN GREWAL DO May 16, 2020 15:06
[2020-05-16 15:20] LABS: BASOPHILS % 0.3 % (0.0-1.0); HEMATOCRIT 45.6 % (38.2-49.6); HEMOGLOBIN 15.7 g/dL (14.0-18.0); LYMPHOCYTES # (AUTO) 0.5 (1.0-3.2); LYMPHOCYTES % 13.8 % (18.0-39.1); MEAN CORPUSCULAR HEMOGLOBIN 30.2 pg (28-32); MEAN CORPUSCULAR HGB CONC 34.4 g/dL (31-35); MEAN CORPUSCULAR VOLUME 87.7 fL (81-99); MONOCYTES # (AUTO) 0.4 (0.2-0.8); MONOCYTES % 9.5 % (4.4-11.3); NEUTROPHILS # (AUTO) 2.9 (2.1-6.9); NEUTROPHILS % 76.1 % (38.7-80.0); PLATELET COUNT 93 x10e3/uL (140-360); RED CELL DISTRIBUTION WIDTH 12.1 % (11.7-14.4)
--- NOTE | 2020-05-16 15:31 | Diagnostic Imaging Report ---
EXAMINATION: CHEST SINGLE (PORTABLE) COMPARISON: Chest x-ray 07/28/2019 INDICATION: ^Y ^COVID+ ^[id number] ^1450 DISCUSSION: Frontal view of the chest obtained at 1449 hours. HEART AND MEDIASTINUM: The heart is top normal in size. LINES: None. LUNGS: Lung volumes are low. Diffuse patchy airspace opacities in the mid and lower lung zones. No pleural effusion or pneumothorax. BONES AND SOFT TISSUES: No focal osseous lesion. The soft tissues are normal. ABDOMEN: Gaseous distention of the stomach and large bowel without dilatation. Bowel gas pattern is unremarkable. IMPRESSION: Patchy airspace opacities can represent pneumonia given the history of COVID infection. A component of atelectasis is also suspected. Signed by: Dr. Randall Haskins MD on 05/16/2020 3:28 PM
--- OUTSIDE RECORDS SUMMARY | 2020-05-16 15:35 | XMS REPORT | Continuity of Care Document ---
Author Author Vicente Elko [facility] ETHEL Vincent Organization [employer] Address Unknown Phone Unavailable Care Team Providers Care Decision Analyst Name Role Phone [employer] Information [employer] Unavailable Un available Problems Problem Status Onset Date Classification Date Reported Comments Source 786.2 - COUGH Active 04/01/2015 [facility] [place] Medications No Data Provided for This Section [...] No acute cardiopulmonary abnormaliti es. 04/01/2015 [facility] [place] Knee 1-2 Views unilateral DX E xam: Left knee x-ray, 3 views Reason for Exam: Left knee pain Comparison Exam: none Discussion: No fractures or dislocations are seen of the left knee. Mild joint space narrowing seen within the medial compartment. No intraosseous lesions. No radiopaque foreign bodies. Impression: 1. No acute bony abnormalities seen wit hin the left knee. 04/01/2015 [facility] [place] Consultation Notes No Data Provided for This Section Discharge Summaries No Data Provided for This Section History and Physicals No Data Provided for This Section Vital Signs No Data Provided for This Section Encounters Location Location Details Encounter Type Encounter Number Reason For Visit Attending Provider ADM Date DC Date Status Source [facility] [place] [facility] Di[facility] Services [id number] Chris Mistry 04/01/2015 04/02/2015 [facility] [place] Procedures No Data Provided for This Section [...]
--- OUTSIDE RECORDS SUMMARY | 2020-05-16 15:36 | XMS REPORT | Continuity of Care Document ---
Author Author [facility] t Organization [facility] Address [address] [place] [address] Phone Unavailable Care Team Providers Care Amusement Ride Inspector Name Role Phone TIANNA SCOTT MD PCP SANDHIRSudhakar AMBICA Attphys Unavailable HAMPEL, EMILY Attphys Unavailable SWEET, A LAIRD Attphys Unavailable Mistry, Carlin Chris Attphys TIANNA SCOTT Admphys Unavailable Payers Payer Name Policy Type Policy Number Effective Date Expiration Date Sudhakar lopez Aarp Medicare Complete [id number] I [facility] Problems Condition Name Condition Details Condition Category Status Onset Date Resolution Date Last Treatment Date Treating Clinician Comments Source 786.2 - COUGH 786. 2 - COUGH Active 04/01/2015 MICHAEL Amanda Diagnosis Active 2015-04-01 00:01:00 2015-04-01 08:11:00 [facility] Allergies, Adverse Reactions, Alerts This patient has no known allergies or adverse reactions. Social History Social Habit Start Date Stop Date Quantity Comments Source Social History 2015-04-02 04:59:00 2015-04-02 04:59:00 [facility] Medications Ordered Medication Name Filled Medication Name Start Date Stop Da te Current Medication? Ordering Clinician Indication Dosage Frequency Signature (SIG) Comments Components Source Cholecalciferol (Vitamin D3) (Vitamin D3) 2,000 Unit C apsule Cholecalciferol (Vitamin D3) (Vitamin D3) 2,000 Unit Capsule Yes 2000 Daily [facility] Multivitamin/Iron/Folic Acid (Centrum Complete Multivi t Tab) 1 Each Tablet Multivitamin/Iron/Folic Acid (Centrum Complete Multivit Tab) 1 Each Tablet Yes 1 Daily [facility] Pantoprazole Sodium (Protonix) 40 Mg Tablet. Pantopr azole Sodium (Protonix) 40 Mg Tablet.dr Fields 40 Daily [facility] Procedures Procedure Date / Time Performed Performing Clinician Sour e CT of abdomen and pelvis without contrast 2019-06-03 00:00:00 HARLAN VALLEJO [facility] COLONOSCOPY W/LESION REMOVAL 2018-10-11 00:00:00 HERMELINDA SHARMA [facility] COLONOSCOPY W/LESION REMOVAL 2018-10-11 00:00:00 HERMELINDA SHARMA [facility] Encounters Start Date/Time End Date/Time Encounter Type Admission Type Attendi [facility] Care Department Encounter ID Source 2019-06-03 06:06:00 2019-06-03 09:25:00 Departed Emergency Room 1 SAMUEL HARLAN [facility] [id number] [facility] 2018-10-11 09:30:00 2018-10-11 09:30:00 Registered Surgical Day Care [facility] [id number] [facility] 2015-04-01 08:01:00 2015-04-01 23:59:00 Outpatient Sanket Mistry MHHOIP MHHOIP [id number] Results Test Description Test Time Test Comments Results Result Comments Source CHEST SINGLE (PORTABLE) 2020-05-16 15:26:00 [facility] : 1950 Sex: M [place] [address] Patient Name: ETHEL NORTON MR #: [id number] : 1950 Age/Sex: 70/M Req #: [id number] Adm Physician: Ordered by: SARAN GREWAL DO Report #: [id number] Location: ER Room/Bed: Procedure: [id number] DX/CHEST SINGLE (PORTABLE) Exam Date: 05/16/20 Exam Time: 1450 REPORT STATUS: Signed EXAMINATION: CHEST SINGLE (PORTABLE) COMPARISON: Chest x-ray 07/28/2019 INDICATION: Y COVID+ [id number] 1450 DISCUSSION: Frontal view of the chest obtained at 1449 hours. HEART AND MEDIASTINUM: The heart is top normal in size. LINES: None. LUNGS: Lung volumes are low. Diffuse patchy airspace opacities in the mid and lower lung zones. No pleural effusion or pneumothorax. BONES AND SOFT TISSUES: No focal osseous lesion. The soft tissues are normal. ABDOMEN: Gaseous distention of the stomach and large bowel without dilatation. Bowel gas pattern is unremarkable. IMPR ESSION: Patchy airspace opacities can represent pneumonia given the history of COVID infection. A component of atelectasis is also suspected. Signed by: Dr. Catrachita Gibson MD on 05/16/2020 3:28 PM Dictated By: CATRACHITA GIBSON MD 27 Transcribed By: RICARDO on 05/16/20 1528 COPY TO: SARAN GREWAL DO ABDOMEN-1VIEW ([facility]) 2019-09-10 10:58:00 [place] [address] Patient Name: ETHEL NORTON MR #: [id number] : 1950 Age/Sex: 69/M Req #: [id number] Adm Physician: Ordered by: EMILY ORLANDO MD Report #: [id number] Location: RAD Room/Bed: Procedure: [id number] DX/ABDOMEN-1VIEW ([facility]) Exam Date: 09/10/19 Exam Time: [...] 11:01 AM Dictated By: JAC MUSA MD 110 Transcribed By: RICARDO on 09/10/19 110 COPY TO: EMILY ORLANDO MD ABDOMEN-1VIEW ([facility]) 2019-08-05 16:21:00 [place] [address] Patient Name: ETHEL NORTON MR #: [id number] : 1950 Age/Sex: 69/M Req #: [id number] Adm Physician: Ordered by: EMILY ORLANDO MD Report #: [id number] Location: OR Room/Bed: Procedure: [id number] DX/ABDOMEN-1VIEW ([facility]) Exam Date: 08/05/19 Exam Time: [...] MUSA MD 22 Transcribed By: RICARDO on 08/05/19 162 COPY TO: EMILY ORLANDO MD CHEST 2 VIEWS 2019-08-05 16:21:00 [place] [address] Patient Name: ETHEL NORTON MR #: [id number] : 1950 Age/Sex: 69/M Req #: [id number] Adm Physician: Ordered by: EMILY ORLANDO MD Report #: [id number] Location: OR Room/Bed: Procedure: [id number] DX/CHEST 2 VIEWS Exam Date: 08/05/19 Exam [...] 4:23 PM Dictated By: JAC MUSA MD 1625 Transcribed By: RICARDO on 08/05/19 1623 COPY TO: EMILY ORLANDO MD ABDOMEN-1VIEW ([facility]) 2019-07-07 16:19:00 [place] [address] Patient Name: ETHEL NORTON MR #: [id number] : 1950 Age/Sex: 69/M Req #: [id number] Adm Physician: Ordered by: EMILY ORLANDO MD Report #: [id number] Location: [facility] Room/Bed: Procedure: [id number] DX/ABDOMEN-1VIEW ([facility]) Exam Date: 07/07/19 Exam Time: 1536 REPORT STATUS: Signed INDICATION: History of kidney stones. COMPARISON: Abdomen pelvis CT June 03, 2019 TECHNIQUE: Abdomen radiograph one view. FINDINGS / IMPRESSION: Small right kidney stone and small right ureterovesicular stone are again demonstrated. There is mild constipation and fecal impaction. Scoliosis also noted. Signed by: John Melo MD on 07/07/2019 4:22 PM Dictated By: JOHN MELO 21 Transcribed By: RICARDO on 07/07/191621 COPY TO: EMILY ORLANDO MD CT ABDOMEN/PELVIS WO 2019-06-03 08:37:00 [place] [address] Patient Name: ETHEL NORTON MR #: [id number] : 1950 Age/Sex: 69/M Req #: [id number] Adm Physician: Ordered by: HARLAN BAKER MD Report #: [id number] Location: ER Room/Bed: Procedure: [id number] CT/CT ABDOMEN/PELVIS WO Exam Date: 06/03/19 Exam [...] vessels without aneurysmal dilatation. Incidental note of vgap-xa-sxfb origins of the splenic and common hepatic [...] disease. Cholelithiasis. Prostatomegaly. Signed by: Dr. Ethel Galdamez M.D. on 06/03/2019 8:45 AM Dictated By: ETHEL GALDAMEZ MD 4 Transcribed By: RICARDO on 06/03/19844 COPY TO: HARLAN BAKER MD Sodium Level 2019-06-03 07:53:00 Test Item Sodium Level (test code = 2951-2) 136 136-145 [facility]Potassium Hlcsm9867-77-68 07:53:00* Test Item Value Reference Range Interpretation Comments Potassium Level (test code = 2823-3) 4.3 3.5-5.1 [facility] HospitalChloride Ooqfh5764-48-95 07:53:00* Test Item Value Reference Range Interpretation Comments Chloride Level (test code = 2075-0) 102 98-107 [facility] HospitalCarbon Dioxide Jtuyz0028-12-70 07:53:00* Test Item Value Reference Range Interpretation Comments Carbon Dioxide Level (test code = 2028-9) 25 22-29 [facility] HospitalAnion Xkf7820-57-71 07:53:00* Test Item Value Reference Range Interpretation Comments Anion Gap (test code = 11694-0) 13.3 8-16 [facility] HospitalBlood Urea Xbfzpqtc9541-37-66 07:53:00* Test Item Value Reference Range Interpretation Comments Blood Urea Nitrogen (test code = 3094-0) 15 7-26 [facility] HospitalCreatinine2019-11-26 07:53:00* Test Item Value Reference Range Interpretation Comments Creatinine (test code = 2160-0) 0.85 0.72-1.25 [facility] HospitalBUN/Creatinine Llync1490-75-89 07:53:00* Test Item Value Reference Range Interpretation Comments BUN/Creatinine Ratio (test code = 3097-3) 18 6- [facility] HospitalEstimat Glomerular Filtration Rate 2019-06-03 07:53:00* Test Item Value Reference Range Interpretation Comments Estimat Glomerular Filtration Rate (test code = 890564857) > 60 >60 Ranges were taken from the National Kidney Disease Education Program and the [facility] literature.Reference ranges:60 or greater: Hrptks64-37 ( for 3 consecutive months): Chronic kidney disease 15 or less: Kidney failureUT Health [facility] HospitalGlucose Trsaf6257-66-45 07:53:00* Test Item Value Reference Range Interpretation Comments Glucose Level (test code = ZIO1770) 127 74-118 H [facility] HospitalCalcium Kysah4291-17-45 07:53:00* Test Item Value Reference Range Interpretation Comments Calcium Level (test code = 57223-4) 9.3 8.4-10.2 [facility] HospitalTotal Fdnxbnpdm6223-28-11 07:53:00* Test Item Value Reference Range Interpretation Comments Total Bilirubin (test code = 1975-2) 0.4 0.2-1.2 [facility] HospitalAspartate Amino Transf (AST/SGOT) 2019-06-03 07:53:00* Test Item Value Reference Range Interpretation Comments Aspartate Amino Transf (AST/SGOT) (test code = Aspartate Amino Transf (AST/SGOT)) 34 5-34 [facility] HospitalAlanine Aminotransferase (ALT/SGPT) 2019-06-03 07:53:00* Test Item Value Reference Range Interpretation Comments Alanine Aminotransferase (ALT/SGPT) (test code = 1742-6) 32 0-55 [facility] HospitalTotal Ssgosiw8098-69-19 07:53:00* Test Item Value Reference Range Interpretation Comments Total Protein (test code = 2885-2) 7.2 6.5-8.1 [facility] HospitalAlbumin2019-11-26 07:53:00* Test Item Value Reference Range Interpretation Comments Albumin (test code = 1751-7) 4.0 3.5-5.0 [facility] HospitalGlobulin2019-11-26 07:53:00* Test Item Value Reference Range Interpretation Comments Globulin (test code = 10151-5) 3.2 2.3-3.5 [facility] HospitalAlbumin/Globulin Yzrwq7812-78-88 07:53:00 * Test Item Value Reference Range Interpretation Comments Albumin/Globulin Ratio (test code = 1759-0) 1.3 0.8-2.0 [facility] HospitalAlkaline Zndwtnrduty1240-98-88 07:53:00* Test Item Value Reference Range Interpretation Comments Alkaline Phosphatase (test code = 6768-6) 66 40-150 [facility] HospitalWhite Blood Irdfi4564-40-01 07:38:00* Test Item Value Reference Range Interpretation Comments White Blood Count (test code = 6690-2) 10.45 4.8-10.8 [facility] HospitalRed Blood Pkoan3938-20-12 07:38:00* Test Item Value Reference Range Interpretation Comments Red Blood Count (test code = 789-8) 5.01 4.3-5.7 [facility] HospitalHemoglobin2019-11-26 07:38:00* Test Item Value Reference Range Interpretation Comments Hemoglobin (test code = 67031-4) 15.6 14.0-18.0 [facility] HospitalHematocrit2019-11-26 07:38:00* Test Item Value Reference Range Interpretation Comments Hematocrit (test code = 4544-3) 44.7 38.2-49.6 [facility] HospitalMean Corpuscular Fceitj3375-02-42 07:38:00* Test Item Value Reference Range Interpretation Comments Mean Corpuscular Volume (test code = 787-2) 89.2 81-99 [facility] HospitalMean Corpuscular Vfgkjaodxn6209-50-46 07:38:00* Test Item Value Reference Range Interpretation Comments Mean Corpuscular Hemoglobin (test code = 785-6) 31.1 28-32 [facility] Corp[facility] Hemoglobin Concent 2019-06-03 07:38:00* Test Item Value Reference Range Interpretation Comments Mean Corpuscular Hemoglobin Concent (test code = 786-4) 34.9 31-35 [facility] HospitalRed Cell Distribution Igocb1846-27-16 07:38:00* Test Item Value Reference Range Interpretation Comments Red Cell Distribution Width (test code = 47594-1) 12.8 11.7 -14.4 [facility] HospitalPlatelet Vgqgc8126-86-02 07:38:00* Test Item Value Reference Range Interpretation Comments Platelet Count (test code = 777-3) 162 140-360 [facility] HospitalNeutrophils (%) (Auto)2019-06-03 07:38:00 * Test Item Value Reference Range Interpretation Comments Neutrophils (%) (Auto) (test code = 73289-5) 85.7 38.7-80.0 H [facility] HospitalLymphocytes (%) (Auto)2019-06-03 07:38:00 * Test Item Value Reference Range Interpretation Comments Lymphocytes (%) (Auto) (test code = 736-9) 7.6 18.0-39.1 L [facility] HospitalMonocytes (%) (Auto)2019-06-03 07:38:00* Test Item Value Reference Range Interpretation Comments Monocytes (%) (Auto) (test code = 5905-5) 5.8 4.4-11.3 [facility] HospitalEosinophils (%) (Auto)2019-06-03 07:38:00 * Test Item Value Reference Range Interpretation Comments Eosinophils (%) (Auto) (test code = 713-8) 0.1 0.0-6.0 [facility] HospitalBasophils (%) (Auto)2019-06-03 07:38:00* Test Item Value Reference Range Interpretation Comments Basophils (%) (Auto) (test code = 706-2) 0.4 0.0-1.0 [facility] HospitalIM GRANULOCYTES %2019-06-03 07:38:00* Test Item Value Reference Range Interpretation Comments IM GRANULOCYTES % (test code = IM GRANULOCYTES %) 0.4 0.0- 1.0 [facility] HospitalNeutrophils # (Auto)2019-06-03 07:38:00* Test Item Value Reference Range Interpretation Comments Neutrophils # (Auto) (test code = 751-8) 9.0 2.1-6.9 H [facility] HospitalLymphocytes # (Auto)2019-06-03 07:38:00* Test Item Value Reference Range Interpretation Comments Lymphocytes # (Auto) (test code = 00694-4) 0.8 1.0-3.2 L [facility] HospitalMonocytes # (Auto)2019-06-03 07:38:00* Test Item Value Reference Range Interpretation Comments Monocytes # (Auto) (test code = 742-7) 0.6 0.2-0.8 [facility] HospitalEosinophils # (Auto)2019-06-03 07:38:00* Test Item Value Reference Range Interpretation Comments Eosinophils # (Auto) (test code = 711-2) 0.0 0.0-0.4 [facility] HospitalBasophils # (Auto)2019-06-03 07:38:00* Test Item Value Reference Range Interpretation Comments Basophils # (Auto) (test code = 704-7) 0.0 0.0-0.1 [facility] HospitalAbsolute Immature Granulocyte (auto 2019-06-03 07:38:00* Test Item Value Reference Range Interpretation Comments Absolute Immature Granulocyte (auto (stephani t code = Absolute Immature Granulocyte (auto) 0.04 0-0.1 [facility] HospitalUrine RJD5522-43-94 07:06:00* Test Item Value Reference Range Interpretation Comments Urine WBC (test code = 5821-4) 11-20 0-5 H [facility] HospitalUrine HQF1901-94-94 07:06:00* Test Item Value Reference Range Interpretation Comments Urine RBC (test code = 64394-4) 6-10 0-5 H [facility] HospitalUrine Bhqghgwf4769-43-88 07:06:00* Test Item Value Reference Range Interpretation Comments Urine Bacteria (test code = 82920-9) RARE NONE [facility] HospitalUrine Epithelial Jhccr3531-64-41 07:06:00 * Test Item Value Reference Range Interpretation Comments Urine Epithelial Cells (test code = 70384-8) FEW NONE [facility] HospitalUrine Qrael1159-06-37 06:57:00* Test Item Value Reference Range Interpretation Comments Urine Color (test code = 5778-6) YELLOW YELLOW [facility] HospitalUrine Nkxapnj3626-37-55 06:57:00* Test Item Value Reference Range Interpretation Comments Urine Clarity (test code = 72037-7) CLEAR CLEAR [facility] HospitalUrine Specific Bclwoib0754-84-60 06:57:00 * Test Item Value Reference Range Interpretation Comments Urine Specific Grawn (test code = 5811-5) >=1.030 1.010-1.02 5 [facility] HospitalUrine vX0310-73-12 06:57:00* Test Item Value Reference Range Interpretation Comments Urine pH (test code = 84155-4) 6 5-7 [facility] Leukocyte Pspujjhz1132-76-40 06:57:00* Test Item Value Reference Range Interpretation Comments Urine Leukocyte Esterase (test code = 00963-5) NEGATIVE NEGATIV E [facility] HospitalUrine Sjrlsji5601-77-11 06:57:00* Test Item Value Reference Range Interpretation Comments Urine Nitrite (test code = 55356-4) NEGATIVE NEGATIVE [facility] HospitalUrine Qkblcrl4248-72-53 06:57:00* Test Item Value Reference Range Interpretation Comments Urine Protein (test code = 99952-7) NEGATIVE NEGATIVE [facility] Glucose (UA)2019-06-03 06:57:00* Test Item Value Reference Range Interpretation Comments Urine Glucose (UA) (test code = 53755-2) NEGATIVE NEGATIVE [facility] Pghnbdt7903-43-44 06:57:00* Test Item Value Reference Range Interpretation Comments Urine Ketones (test code = 70745-1) NEGATIVE NEGATIVE [facility] Elygeffmdlsh9352-97-66 06:57:00* Test Item Value Reference Range Interpretation Comments Urine Urobilinogen (test code = 34933-7) 0.2 0.2-1 [facility] Tgrsnuqgj0528-82-47 06:57:00* Test Item Value Reference Range Interpretation Comments Urine Bilirubin (test code = 1977-8) NEGATIVE NEGATIVE [facility] HospitalUrine Zpyqb9439-76-82 06:57:00* Test Item Value Reference Range Interpretation Comments Urine Blood (test code = 37885-4) 1+ NEGATIVE [facility]
[2020-05-16 15:40] LABS: ALANINE AMINOTRANSFERASE 58 IU/L (0-55); ALBUMIN 3.4 g/dL (3.5-5.0); ALBUMIN/GLOBULIN RATIO 0.9 (0.8-2.0); ALKALINE PHOSPHATASE 48 IU/L (40-150); ANION GAP 14.7 mmol/L (8-16); BLOOD UREA NITROGEN 23 mg/dL (7-26); BUN/CREATININE RATIO 21 (6-25); CALCIUM 8.7 mg/dL (8.4-10.2); CARBON DIOXIDE 28 mmol/L (22-29); CHLORIDE 95 mmol/L (98-107); CREATININE, SERUM 1.09 mg/dL (0.72-1.25); EST GLOMERULAR FILTRATION RATE > 60 ML/MIN (60-); GLUCOSE 120 mg/dL (74-118); POTASSIUM 3.7 mmol/L (3.5-5.1); SODIUM 134 mmol/L (136-145)
[2020-05-16 16:26] LABS: LYMPHOCYTES % (MANUAL) 9 % (19-48); MONOCYTES % (MANUAL) 10 % (3.4-9.0); NEUTROPHILS % (MANUAL) 80 % (40-74); PLATELET ESTIMATE ADEQUATE; PLATELET MORPHOLOGY COMMENT NORMAL
[2020-05-16 16:40] VITALS: BP 140/67
[2020-05-16 17:47] VITALS: BP 124/66
--- NOTE | 2020-05-16 19:00 | NUR ---
Report recieved and rounds completed. Patient in bed with call light within reach. 02 4L NC. No issues or concerns noted at this time. Will continue to monitor.
[2020-05-16 19:10] VITALS: BP 126/63
--- NOTE | 2020-05-16 19:43 | NUR ---
Left message with Dr Ruiz (Dr Paez covering) with Saadia at answering service. Awaiting call back.
--- NOTE | 2020-05-16 19:52 | NUR ---
Return call from Dr Paez. Temp 99.4, patient reports temps of 102 at home. No PRN orders for cough or temp. New orders received.
[2020-05-16 19:54] VITALS: BP 126/63
[2020-05-16] MEDS ORDERED: GUAIFENESIN/DEXTROMETHORPHAN LIQD 5 ML UDC PO PRN (20:00)
[2020-05-16] MEDS: GUAIFENESIN/DEXTROMETHORPHAN LIQD 5 ML UDC PO PRN (20:10)
[2020-05-16] MEDS: ACETAMINOPHEN 325 MG TAB PO PRN (20:10)
[2020-05-16 23:09] VITALS: BP 108/69
[2020-05-17] VITALS (8 sets, daily range): BP systolic 107–119; BP diastolic 61–66
[2020-05-17 04:33] LABS: ALBUMIN 2.8 g/dL (3.5-5.0); ALBUMIN/GLOBULIN RATIO 0.8 (0.8-2.0); ALKALINE PHOSPHATASE 40 IU/L (40-150); ANION GAP 11.7 mmol/L (8-16); BLOOD UREA NITROGEN 23 mg/dL (7-26); BUN/CREATININE RATIO 28 (6-25); CALCIUM 8.1 mg/dL (8.4-10.2); CARBON DIOXIDE 26 mmol/L (22-29); CHLORIDE 99 mmol/L (98-107); CREATININE, SERUM 0.83 mg/dL (0.72-1.25); EST GLOMERULAR FILTRATION RATE > 60 ML/MIN (60-); GLUCOSE 122 mg/dL (74-118); POTASSIUM 3.7 mmol/L (3.5-5.1); SODIUM 133 mmol/L (136-145)
[2020-05-17 04:53] LABS: ALANINE AMINOTRANSFERASE 50 IU/L (0-55)
[2020-05-17] MEDS: GUAIFENESIN/DEXTROMETHORPHAN LIQD 5 ML UDC PO PRN ×3 (06:10→20:06)
--- NOTE | 2020-05-17 06:15 | NUR ---
Patient resting in bed with call light, room phone, urinal/BSC and personal belongings within reach. Med for cough PRN. Patient on 02 4L. No issues or concerns noted. Will continue to monitor.
[2020-05-17] MEDS: OCUVITE PRESERVISION TABLET PO SCH (08:56)
[2020-05-17] MEDS: HYDROCHLOROTHIAZIDE 25 MG TAB PO SCH (08:56)
[2020-05-17] MEDS: CHOLECALCIFEROL 1,000 UNIT TAB PO SCH (08:56)
[2020-05-17] MEDS: TAMSULOSIN HCL 0.4 MG CAP PO SCH (08:56)
--- NOTE | 2020-05-17 10:35 | Progress Note ---
DATE: 05/17/2020 SUBJECTIVE: Mr. Fu is a 70-year-old man with history of hypertension and BPH, came to the emergency room with shortness of breath. After testing positive for COVID. He was admitted in the [facility] under isolation. He was seen by Dr. Paez yesterday. We are awaiting for Pulmonary and Infectious Disease to see him. OBJECTIVE: VITAL SIGNS: Temperature is 99.4, blood pressure 109/61, respiratory rate is 20, O2 saturation is 94. He is on O2 nasal cannula. GENERAL: As per nurse, he is doing better. The patient states he is feeling better. LABORATORY DATA: On the blood work, white count is 3.77, hemoglobin 15.7, hematocrit 45.6, potassium 3.7, creatinine 0.83, and glucose 122. No cultures pending. Chest x-ray shows patchy airspace opacities that can be pneumonia due to COVID. ASSESSMENT: 1. Coronavirus disease infection. 2. Coronavirus disease pneumonia. 3. Hypertension. 4. Benign prostatic hypertrophy. PLAN: At the present time is to have Infectious Disease and Pulmonary see the patient. Continue home medications. We are going to put him on prophylactic antibiotics. Continue to monitor respiratory status. All this was discussed with the patient. All questions were answered to satisfaction. MD LUL Ordaz/SMITA /[id number]
--- NOTE | 2020-05-17 10:38 | NUR ---
INFECTIOUS DISEASE CONSULT NOTE DR. KENNY PATRICIA CC: Fatigue REASON FOR CONSULT: covid HPI: This is a very pleasant 70 year old male who has been feeling "tired and sick" for 9 days. He denies significant PMH. He tested positive in the ED for COVID. He is on oxygen. Current 4LPM PMH: HTN PAST SURGICAL: none noted SOCIAL HX: denies smoking/drinking FAMILY HX: HTN ROS: +Fatigue +Malaise PERTINENT POS. LISTED ABOVE PHYSICAL EXAM VS: per chart GENERAL: alert, awake, oriented HEENT: atraumatic, normocephalic CV: s1, s2, no s3, s4 CHEST: rhonchi, symmetric expansion ABD: soft, non-tender, non-distended EXT: moves all, no joint swelling NEURO: no large deficits LABS: per chart DIAGNOSTICS: per chart IMPRESSION: COVID PNA HTN PLAN: RMSV, consulted pharmacy Decadron COVID protocol supportive care Jacquelyn Gutierrez MSN, RADIOLOGIC TECH, AGACNP-BC d/w Kenny Crum M.D
[2020-05-17] MEDS ORDERED: SODIUM CHLORIDE 0.9% 250ML 250 ML ONE (10:48)
[2020-05-17] MEDS: CEFTRIAXONE SOD 1 GM/NS 50 ML 50 ML IV SCH (11:00)
[2020-05-17] MEDS: AZITHROMYCIN 250MG/NS 100 ML 100 ML IV SCH (12:21)
[2020-05-17] MEDS: ACETAMINOPHEN 325 MG TAB PO PRN ×2 (12:21→23:11)
[2020-05-17] MEDS ORDERED: REMDESIVIR 200MG/NS 100ML 200 MG IV ONE (14:00)
[2020-05-17] MEDS: ENOXAPARIN SOD INJ 40 MG/0.4 ML SYR SC SCH (17:12)
--- NOTE | 2020-05-17 20:05 | NUR ---
PATIENT RESTING IN BED IN STABLE CONDITION, NO SIGNS OF DISTRESS NOTED. PATIENT PRESENTS A COUGH AND WAS MEDICATED ORDERED AND VOICES NO PAIN AT THIS CURRENT TIME. NASAL CANNULA IS INTACT AND RUNNING AT 4 LITERS AND BEDSIDE COMMODE IS NEAR BEDSIDE. BED IS LOWEST POSITION, BOTH SIDE RAILS ARE UP, CALL LIGHT IS WITHIN EASY REACH, WILL CONTINUE TO MONITOR.
[2020-05-17] MEDS ORDERED: HEPARIN SOD (PORCINE) 5,000 UNIT/ML VIAL SC SCH (21:00)
--- NOTE | 2020-05-17 23:08 | Consultation ---
DATE OF CONSULTATION: Pulmonary Consultation REASON FOR CONSULT: COVID-19 pneumonia. HISTORY OF PRESENT ILLNESS: Mr. Fu is a 70-year-old male presented to the emergency room with complaints of fever, chills, and shortness of breath. The patient was tested positive for COVID-19 at [facility]. On 05/06, he was here in the hospital and was tested negative. He denies any complaints of chest pain, shortness of breath. He denies any complaints of chest pain. He has shortness of breath, fever and chills. REVIEW OF SYSTEMS: GENERAL: Was having fever and chills. HEAD: Denies any head trauma. ENT: Denies any earache. CVS: Denies any chest pain. RESPIRATORY: Shortness of breath. The rest of the review of systems are negative except as in HPI. PAST MEDICAL HISTORY: Hypertension, benign prostatic hypertrophy. FAMILY AND SOCIAL HISTORY: He does not smoke. Does not drink. PHYSICAL EXAMINATION: VITAL SIGNS: SIGNS: Temperature 99.4, pulse of 90, blood pressure 109/66, respiratory rate of 18, and O2 saturation 96%. HEENT: Head is atraumatic, normocephalic. NECK: Supple. CHEST: Few crackles, otherwise clear. HEART: S1-S2 audible. ABDOMEN: Soft. EXTREMITIES: No pedal edema. NEUROLOGIC: Awake and alert. LABORATORY DATA: Reviewed. MEDICATIONS: Reviewed. ASSESSMENT AND PLAN: Chest x-ray reviewed. A 70-year-old male with COVID-19 pneumonia, supportive care and progress. Continue the patient on Decadron IV. Oxygen as needed to keep the O2 saturation more than or equal to 92%. Lovenox 40 subcu daily for DVT prophylaxis. MD DAVID Fishman/SMITA /[id number]
--- NOTE | 2020-05-17 23:15 | NUR ---
PATIENT PRESENTS FEVER OF 101.2, MEDICATION GIVEN ORDERED, NO SIGNS OF DISTRESS, WILL CONTINUE TO MONITOR.
[2020-05-18] VITALS (8 sets, daily range): BP systolic 106–116; BP diastolic 65–75
[2020-05-18] MEDS: GUAIFENESIN/DEXTROMETHORPHAN LIQD 5 ML UDC PO PRN ×2 (03:56→18:00)
[2020-05-18] MEDS: DEXAMETHASONE SOD PHOS INJ 4 MG/ML VIAL IV SCH (08:49)
[2020-05-18] MEDS: TAMSULOSIN HCL 0.4 MG CAP PO SCH (08:49)
[2020-05-18] MEDS: CHOLECALCIFEROL 1,000 UNIT TAB PO SCH (08:49)
[2020-05-18] MEDS: HYDROCHLOROTHIAZIDE 25 MG TAB PO SCH (08:49)
[2020-05-18] MEDS: OCUVITE PRESERVISION TABLET PO SCH (08:49)
[2020-05-18] MEDS: CEFTRIAXONE SOD 1 GM/NS 50 ML 50 ML IV SCH (10:38)
--- NOTE | 2020-05-18 10:50 | Progress Note ---
DATE: 05/18/2020 SUBJECTIVE: Mr. Fu is a 70-year-old man with history of hypertension, BPH, who was diagnosed with a COVID prior to admission, came to the emergency room because he was very short of breath. He has been on O2 nasal cannula 4 L/min. He is feeling better, but he is very short of breath when he walks. He was started on remdesivir. He is on IV steroids. He is on IV antibiotics. PHYSICAL EXAMINATION: GENERAL: Today, the patient states he is feeling better than what he was on Sunday. VITAL SIGNS: Temperature is 98.5, blood pressure 116/65, the respiratory rate is around 22, and heart rate is 92. LABORATORY DATA: On the blood work; potassium 3.7, creatinine is 0.82, glucose is 122. White count 3.77, hemoglobin 15.7, hematocrit 45.6. Blood cultures are pending. ASSESSMENT AND PLAN: 1. Coronavirus disease infection. 2. Coronavirus disease pneumonia. 3. Hypertension. 4. Benign prostatic hyperplasia. PLAN: At the present time is to continue IV antibiotics. Continue remdesivir to complete a 5-day treatment. Continue dexamethasone. The patient is also on Lovenox 40 mg subcu daily. His home medications were also restarted. The overall prognosis of the patient remains guarded. We will continue to observe and try to wean him off from the oxygen. All this was discussed in detail with the patient. All questions were answered to satisfaction. MD LUL Ordaz/SMITA /[id number]
[2020-05-18] MEDS: AZITHROMYCIN 250MG/NS 100 ML 100 ML IV SCH (11:54)
[2020-05-18 13:44] LABS: BLOOD UREA NITROGEN 28 mg/dL (7-26); BUN/CREATININE RATIO 35 (6-25); CALCIUM 8.4 mg/dL (8.4-10.2); CARBON DIOXIDE 26 mmol/L (22-29); CHLORIDE 99 mmol/L (98-107); CREATININE, SERUM 0.81 mg/dL (0.72-1.25); EST GLOMERULAR FILTRATION RATE > 60 ML/MIN (60-); GLUCOSE 163 mg/dL (74-118); SODIUM 136 mmol/L (136-145)
[2020-05-18] MEDS: REMDESIVIR 100MG/NS 100ML 100 MG IV SCH (14:03)
[2020-05-18 14:04] LABS: MAGNESIUM 2.2 MG/DL (1.3-2.1); PHOSPHORUS 2.8 MG/DL (2.3-4.7)
[2020-05-18 14:22] LABS: HEMATOCRIT 43.4 % (38.2-49.6); LYMPHOCYTES # (AUTO) 0.3 (1.0-3.2); LYMPHOCYTES % 8.7 % (18.0-39.1); MEAN CORPUSCULAR HEMOGLOBIN 30.2 pg (28-32); MEAN CORPUSCULAR HGB CONC 34.6 g/dL (31-35); MEAN CORPUSCULAR VOLUME 87.3 fL (81-99); MONOCYTES # (AUTO) 0.1 (0.2-0.8); MONOCYTES % 4.5 % (4.4-11.3); NEUTROPHILS # (AUTO) 2.5 (2.1-6.9); NEUTROPHILS % 86.1 % (38.7-80.0); PLATELET COUNT 114 x10e3/uL (140-360); RED BLOOD COUNT 4.97 x10e6/uL (4.3-5.7); RED CELL DISTRIBUTION WIDTH 12.1 % (11.7-14.4)
[2020-05-18] MEDS ORDERED: LACTATED RINGER'S 1,000 ML INJ ONE ×2 (14:30→16:30)
[2020-05-18] MEDS: LACTATED RINGER'S 1,000 ML INJ SCH ×2 (14:30→15:31)
--- NOTE | 2020-05-18 14:30 | NUR ---
LAST DOSE OF REMDESIVIR SUNDAY; SHOULD DC HOME THEN WILL GET HOME 02 EVAL CLOSER TO DISCHARGE WEANED FROM 4 LITERS TO 3 LITERS TODAY
[2020-05-18] MEDS: ENOXAPARIN SOD INJ 40 MG/0.4 ML SYR SC SCH (18:00)
--- NOTE | 2020-05-18 20:20 | NUR ---
PATIENT RESTING IN BED IN STABLE CONDITION, NO SIGNS OF DISTRESS NOTED. IV FLUIDS ARE RUNNING AT ORDERED RATE AND VOICES NO PAIN AT THIS CURRENT TIME. NASAL CANNULA IS INTACT AND RUNNING AT 3 LITERS AND BEDSIDE COMMODE IS NEAR BEDSIDE. BED IS LOWEST POSITION, BOTH SIDE RAILS ARE UP, CALL LIGHT IS WITHIN EASY REACH, WILL CONTINUE TO MONITOR.
[2020-05-18] MEDS: BENZONATATE 100 MG CAP PO SCH (20:37)
--- NOTE | 2020-05-18 23:38 | Progress Note ---
DATE: SUBJECTIVE: Patient is breathing better. Still having episodes of cough. PHYSICAL EXAMINATION: VITAL SIGNS: Temperature 97.9, pulse of 86, blood pressure 116/63, 92% on 3 L. CHEST: Crackles bilaterally. HEART: S1, S2 audible. ABDOMEN: Soft. LABORATORY DATA: White count of 2000, hemoglobin 15.0. Chemistry reviewed. ASSESSMENT/PLAN: Mr. Fu is a 70-year-old male with COVID-19 pneumonia. The patient is having cough. I will start the patient on Tessalon Perles. Continue the patient on antibiotic, Decadron, and oxygen as needed to keep the O2 saturation more than or equal to 92%. MD DAVID Fishman/SMITA /[id number]
[2020-05-19] VITALS (7 sets, daily range): BP systolic 105–121; BP diastolic 62–95
[2020-05-19] MEDS: GUAIFENESIN/DEXTROMETHORPHAN LIQD 5 ML UDC PO PRN ×3 (00:07→18:33)
[2020-05-19] MEDS: DEXAMETHASONE SOD PHOS INJ 4 MG/ML VIAL IV SCH (09:39)
[2020-05-19] MEDS: OCUVITE PRESERVISION TABLET PO SCH (09:40)
[2020-05-19] MEDS: BENZONATATE 100 MG CAP PO SCH ×3 (09:40→20:31)
[2020-05-19] MEDS: TAMSULOSIN HCL 0.4 MG CAP PO SCH (09:40)
[2020-05-19] MEDS: CHOLECALCIFEROL 1,000 UNIT TAB PO SCH (09:40)
[2020-05-19] MEDS: HYDROCHLOROTHIAZIDE 25 MG TAB PO SCH (09:40)
--- NOTE | 2020-05-19 10:06 | Progress Note ---
DATE: 05/19/2020 SUBJECTIVE: Mr. Fu is a 70-year-old man with history of BPH, hypertension, diagnosed with COVID prior to admission, came to the emergency room because he was feeling bad. He was having shortness of breath. He is on O2 nasal cannula 4 L/min. He gets very short of breath when he walks. He is doing a little better, started on remdesivir to complete five days. He is also on IV antibiotics and IV steroids. PHYSICAL EXAMINATION: GENERAL: Feeling a little better. VITAL SIGNS: Temperature 97.5, blood pressure is 110/63, respiratory rate is 20, heart rate is 71. LABORATORY DATA: On the blood work, white count is 2.87, hemoglobin 15, hematocrit 43.4. Potassium 4.0, creatinine is 0.81. Magnesium was 2.2. Chest x-ray on admission shows patchy airspace opacities that may represent pneumonia. ASSESSMENT: 1. Coronavirus infection. 2. Coronavirus pneumonia. 3. Hypertension. 4. Benign prostatic hypertrophy. 5. Hypoxemia. PLAN: At present time, we are going to trying to wean him off the oxygen. Continue IV antibiotics. Remdesivir to complete five days. Continue dexamethasone and Lovenox and if he gets better and after completing the course of remdesivir, we may start planning to discharge him home. All this was discussed with the patient and nurse. All questions were answered to satisfaction. MD LUL Ordaz/SMITA /[id number]
[2020-05-19] MEDS ORDERED: SODIUM CHLORIDE 0.9% IV SCH (11:15)
[2020-05-19] MEDS: CEFTRIAXONE SOD 1 GM/NS 50 ML 50 ML IV SCH (11:37)
[2020-05-19 12:22] LABS: HEMATOCRIT 45.1 % (38.2-49.6); HEMOGLOBIN 15.5 g/dL (14.0-18.0); LYMPHOCYTES # (AUTO) 0.5 (1.0-3.2); LYMPHOCYTES % 7.2 % (18.0-39.1); MEAN CORPUSCULAR HEMOGLOBIN 30.2 pg (28-32); MEAN CORPUSCULAR HGB CONC 34.4 g/dL (31-35); MEAN CORPUSCULAR VOLUME 87.9 fL (81-99); MONOCYTES # (AUTO) 0.4 (0.2-0.8); MONOCYTES % 5.6 % (4.4-11.3); NEUTROPHILS # (AUTO) 5.7 (2.1-6.9); NEUTROPHILS % 86.6 % (38.7-80.0); PLATELET COUNT 177 x10e3/uL (140-360); RED BLOOD COUNT 5.13 x10e6/uL (4.3-5.7); RED CELL DISTRIBUTION WIDTH 12.1 % (11.7-14.4)
[2020-05-19] MEDS: AZITHROMYCIN 250MG/NS 100 ML 100 ML IV SCH (12:22)
[2020-05-19 12:45] LABS: ALANINE AMINOTRANSFERASE 48 IU/L (0-55); ALBUMIN 2.7 g/dL (3.5-5.0); ALBUMIN/GLOBULIN RATIO 0.7 (0.8-2.0); ALKALINE PHOSPHATASE 44 IU/L (40-150); BLOOD UREA NITROGEN 31 mg/dL (7-26); BUN/CREATININE RATIO 41 (6-25); CALCIUM 8.6 mg/dL (8.4-10.2); CARBON DIOXIDE 29 mmol/L (22-29); CHLORIDE 100 mmol/L (98-107); CREATININE, SERUM 0.76 mg/dL (0.72-1.25); EST GLOMERULAR FILTRATION RATE > 60 ML/MIN (60-); GLUCOSE 139 mg/dL (74-118); SODIUM 139 mmol/L (136-145)
--- NOTE | 2020-05-19 13:06 | Diagnostic Imaging Report ---
Chest, 1 view, 05/19/2020. History: Covid pneumonia. Comparison: 05/16/2020. Findings: The cardiomediastinal silhouette and pulmonary vasculature are within normal limits for a portable exam. Patchy bilateral airspace opacities are without significant change. There is no evidence of pleural effusion. There are no acute osseous or soft tissue abnormalities. Impression: Bilateral pneumonia without significant change. Signed by: Adriano Connor on 05/19/2020 1:03 PM
[2020-05-19] MEDS: REMDESIVIR 100MG/NS 100ML 100 MG IV SCH (14:11)
[2020-05-19] MEDS: ENOXAPARIN SOD INJ 40 MG/0.4 ML SYR SC SCH (16:37)
--- NOTE | 2020-05-19 19:10 | NUR ---
patient received awake, alert, lying quietly in bed. 08/12l/nc in use. no acute distress noted. pm assessment complete. call oliveira placed within reach. patient instructed to call for assistance when needed.
--- NOTE | 2020-05-19 23:18 | Progress Note ---
DATE: SUBJECTIVE: The patient is breathing better. Still having cough. No distress. PHYSICAL EXAMINATION: VITAL SIGNS: Reviewed. Temperature 97.8, pulse of 80, blood pressure 105/65, respiratory rate of 18. CHEST: Clear. GENERAL: Awake and alert. LABORATORY DATA: Reviewed. Chest x-ray repeated today still showing bilateral infiltrate. ASSESSMENT/PLAN: Mr. Fu is a 70-year-old male with COVID-19 pneumonia. Continue the patient on Decadron, Rocephin, azithromycin, and Lovenox. Oxygen as needed. Keep the O2 saturation more than or equal to 92%. MD DAVID Fishman/SMITA /[id number]
[2020-05-20] VITALS (8 sets, daily range): BP systolic 106–119; BP diastolic 62–72
[2020-05-20] MEDS: DEXAMETHASONE SOD PHOS INJ 4 MG/ML VIAL IV SCH (08:45)
[2020-05-20] MEDS: BENZONATATE 100 MG CAP PO SCH ×3 (08:46→21:00)
[2020-05-20] MEDS: CHOLECALCIFEROL 1,000 UNIT TAB PO SCH (08:46)
[2020-05-20] MEDS: TAMSULOSIN HCL 0.4 MG CAP PO SCH (08:46)
[2020-05-20] MEDS: OCUVITE PRESERVISION TABLET PO SCH (08:46)
[2020-05-20] MEDS: HYDROCHLOROTHIAZIDE 25 MG TAB PO SCH (08:47)
--- NOTE | 2020-05-20 09:11 | Progress Note ---
DATE: 05/20/2020 SUBJECTIVE: Mr. Fu is a 70-year-old man with history of BPH, hypertension, diagnosed with COVID, came to the emergency room with shortness of breath. He is still on O2 nasal cannula 4 L/minute. We have been able to wean him off because he gets very short of breath. He has been on IV steroids, IV antibiotics, Lovenox as well as Remdesivir to complete five days. PHYSICAL EXAMINATION: GENERAL: The patient is still short of breath when he moves around. VITAL SIGNS: Temperature is 97.4, blood pressure 107/62, respiratory rate is 20, heart rate is 67. LABORATORY DATA: He is feeling a little better on the blood work. White count is 6.56, hemoglobin 15.5, hematocrit 45.1. Potassium 4.0, creatinine 0.76, glucose 139. Blood cultures so far negative. Repeated chest x-ray shows bilateral pneumonia with no significant changes. ASSESSMENT: 1. Coronavirus infection. 2. Coronavirus pneumonia. 3. Hypertension. 4. Benign prostatic hyperplasia. 5. Hypoxemia. PLAN: At the present time is to continue O2 nasal cannula 4 L/minutes, so far we have not been able to wean him off. Continue IV Rocephin and azithromycin. Remdesivir to complete five days. Continue dexamethasone and Lovenox. Even though, the patient has not being getting worse, he is not getting better either and he has been very difficult to wean him off oxygen, so we are going to get evaluation for oxygen at home. All this was discussed with the patient. All questions were answered to satisfaction. MD LUL Ordaz/MODL /[id number]
[2020-05-20] MEDS ORDERED: SODIUM CHLORIDE 0.9% 250ML 250 ML ONE (10:08)
[2020-05-20] MEDS: CEFTRIAXONE SOD 1 GM/NS 50 ML 50 ML IV SCH (10:15)
--- NOTE | 2020-05-20 11:58 | NUR ---
INFECTIOUS DISEASE CONSULT NOTE DR. KENNY PATRICIA CC: Fatigue REASON FOR CONSULT: covid HPI: This is a very pleasant 70 year old male who has been feeling "tired and sick" for 9 days. He denies significant PMH. He tested positive in the ED for COVID. He is on oxygen. Current 4LPM PMH: HTN PAST SURGICAL: none noted SOCIAL HX: denies smoking/drinking FAMILY HX: HTN ROS: +Fatigue +Malaise PERTINENT POS. LISTED ABOVE PHYSICAL EXAM VS: per chart GENERAL: alert, awake, oriented HEENT: atraumatic, normocephalic CV: s1, s2, no s3, s4 CHEST: rhonchi, symmetric expansion ABD: soft, non-tender, non-distended EXT: moves all, no joint swelling NEURO: no large deficits LABS: per chart DIAGNOSTICS: per chart IMPRESSION: COVID PNA HTN PLAN: RMSV, consulted pharmacy -finish RMSV, will need home 02 Decadron COVID protocol supportive care discharge planning, must be able to ambulate on 4LPM or less and maintain SATS >91% Jacquelyn Gutierrez MSN, [employer], AGACNP-BC d/w Kenny Crum M.D
[2020-05-20] MEDS: REMDESIVIR 100MG/NS 100ML 100 MG IV SCH (12:57)
[2020-05-20] MEDS ORDERED: FUROSEMIDE INJ 10 MG/ML 4 ML VIAL IV ONE (13:25)
[2020-05-20] MEDS: ENOXAPARIN SOD INJ 40 MG/0.4 ML SYR SC SCH (17:28)
--- NOTE | 2020-05-20 19:10 | NUR ---
patient received awake, alert, lying quietly in bed. vss. no c/o pain noted. respirations even and unlabored. 08/12l/nc in use at this time. pm assessment complete. call oliveira placed within reach. patient instructed to call for assistance when needed.
--- NOTE | 2020-05-20 20:54 | Progress Note ---
DATE: SUBJECTIVE: The patient is having shortness of breath, which has improved. The patient is still having shortness of breath. He is on 4 L nasal cannula, saturating 92%. PHYSICAL EXAMINATION: HEENT: Head atraumatic and normocephalic. VITAL SIGNS: Temperature 97.6, pulse of 75, blood pressure 106/69. CHEST: Clear to auscultation bilaterally. No wheezing. Crackles on the bases. HEART: S1, S2 audible. ABDOMEN: Soft. LABORATORY DATA: Reviewed. ASSESSMENT AND PLAN: A 70-year-old male with COVID-19 infection and acute respiratory failure. The patient is gradually improving on 4 L nasal cannula. Continue the patient on IV antibiotic, remdesivir, and Lovenox along with Decadron. MD DAVID Fishman/SMITA /[id number]
--- NOTE | 2020-05-21 | NUR ---
vss. 02 sats 83% on 4l/nc. 02 increased to 5l/nc at this time. 02 sats 90% after 02 was increased.
[2020-05-21 00:02] VITALS: BP 107/68
[2020-05-21 04:23] VITALS: BP 115/66
[2020-05-21 07:41] VITALS: BP 112/66
--- NOTE | 2020-05-21 07:53 | NUR ---
PT'S O2 HUMIDIFIED FOR PTS' COMFORT
[2020-05-21 09:11] VITALS: BP 112/66
--- NOTE | 2020-05-21 09:21 | Progress Note ---
DATE: 05/21/2020 SUBJECTIVE: Mr. Fu is a 70-year-old man with history of BPH, hypertension, diagnosed with COVID. He came to the emergency room with shortness of breath. He has been on 4 L of oxygen. We are trying to wean him off. He is on IV antibiotics, IV steroids, Lovenox, and remdesivir PHYSICAL EXAMINATION: GENERAL: He is still on oxygen. VITAL SIGNS: Temperature is 98, blood pressure 112/66, pulse is 92, oxygen was 87. Blood cultures so far negative. Repeat chest x-ray shows bilateral pneumonia. ASSESSMENT: 1. Acute hypoxemic respiratory failure. 2. Coronavirus infection. 3. Coronavirus pneumonia. 4. Hypertension. 5. Benign prostatic hyperplasia. PLAN: At the present time; the patient is still on IV antibiotics, still on Decadron, remdesivir to complete five days. He is also on Lovenox. We are going to try to wean him off oxygen. Also get a request for home oxygen. The patient is stable and has finished a course of remdesivir and if improves his respiratory status, he will be able to go home. All this was discussed with the patient, MD LUL Ordaz/SMITA /[id number]
[2020-05-21] MEDS: OCUVITE PRESERVISION TABLET PO SCH (09:30)
[2020-05-21] MEDS: HYDROCHLOROTHIAZIDE 25 MG TAB PO SCH (09:30)
[2020-05-21] MEDS: CHOLECALCIFEROL 1,000 UNIT TAB PO SCH (09:30)
[2020-05-21] MEDS: TAMSULOSIN HCL 0.4 MG CAP PO SCH (09:30)
[2020-05-21] MEDS: BENZONATATE 100 MG CAP PO SCH ×2 (09:30→15:00)
[2020-05-21] MEDS: DEXAMETHASONE SOD PHOS INJ 4 MG/ML VIAL IV SCH (10:39)
[2020-05-21] MEDS: CEFTRIAXONE SOD 1 GM/NS 50 ML 50 ML IV SCH (10:39)
[2020-05-21] MEDS ORDERED: FUROSEMIDE INJ 10 MG/ML 2 ML VIAL IV ONE ×2 (11:15→11:30)
--- NOTE | 2020-05-21 11:41 | Progress Note ---
DATE: Pulmonary Progress Note SUBJECTIVE: The patient is improving. Gave one dose of Lasix yesterday and felt better. I will give another dose of 20 mg IV today. The patient is getting home oxygen evaluation. Currently on 4 L nasal cannula. ASSESSMENT/PLAN: A 70-year-old male with COVID-19 pneumonia, currently improving. I will give a dose of Lasix 20 mg IV now. Continue other treatment. MD DAVID Fishman/MODL /[id number]
[2020-05-21 11:43] VITALS: BP 113/75
--- NOTE | 2020-05-21 13:39 | NUR ---
Home o2 eval was done. Pt 87% on RA. CM called and spoke to pt about arranging home oxygen. Pt is agreeable to use any company in network. Choice given for [facility]. Signed choice letter placed in chart. Discussed IMM with pt. He verbalized understanding. Signed copy in chart. Copy given to bedside RN to give to pt. Oxygen order and clinical sent to [facility]. Thang with [facility] was informed of referral and will let CM know once approved to deliver portable oxygen.
--- NOTE | 2020-05-21 14:19 | NUR ---
Spoke to Thang with [facility]. Pt is approved. He asked CM to give pt 2 portable tanks. Portable O2 delivered to [facility] to give to pt. Instructions printed and also given to [facility] for pt to call [facility] when he gets discharged for delivery of concentrator. HERNANDEZ also called pt in room and informed him of approval and asked him to call [facility] when he gets discharged. He verbalized understanding.
[2020-05-21] MEDS: REMDESIVIR 100MG/NS 100ML 100 MG IV SCH (14:30)
[2020-05-21 15:51] VITALS: BP 106/71
[2020-05-21] MEDS: ENOXAPARIN SOD INJ 40 MG/0.4 ML SYR SC SCH (17:00)
--- NOTE | 2020-05-21 17:05 | NUR ---
pt has remained stable, ed on home o2 use. pt requested to dc, primary ok once last dose remdesivir admin and home o2 arranged. pt advised by dr hollingsworth to monitor o2 sats at home with pulse ox, suggested remain one more day but pt refusing. wants to dc. reviewed dc instructions and dc instructions with pt, verbalized understanding.
--- NOTE | 2020-05-22 07:31 | Progress Note ---
DATE: 05/21/2020 SUBJECTIVE: Mr. Fu is feeling better. No new complaints. He remains on oxygen. However, he would like to go home with oxygen. He feels it is good enough to go home walking with 4 L home oxygen has been arranged. REVIEW OF SYSTEMS: At the present time; HEENT: Negative. PULMONARY: Negative. CARDIAC: Negative. : Negative. Beside the shortness of breath, he denies any. PHYSICAL EXAMINATION: GENERAL: He is currently alert, oriented. VITAL SIGNS: Stable, currently afebrile. HEENT: He is not icteric. NECK: Supple. CHEST: Few crackles. HEART: S1, S2. ABDOMEN: Soft. Bowel sounds present. EXTREMITIES: Edema. SKIN: No rash. IMPRESSION: COVID-19 superimposed bacterial pneumonia, respiratory failure, slowly getting better. The patient will be discharged home with oxygen to his request at 4 L oxygen. Dexamethasone 6 mg daily to finish his 10 days. To see me back in 2 weeks. To call me with any shortness of breath. To call me if any problems. MD EMY Camarillo/SMITA /[id number]
== END 2020-05-21 17:51 | disposition home or self-care (01) | DRG 177 ==
LOC: ER 14:54 → ERHOLD 15:28 → IMCU 16:29
PROVIDERS: ADMIT Internal Medicine; ATTEND Internal Medicine
PROC: 8E0ZXY6 Isolation (ICD-10-PCS; principal; 2020-05-16)
PROC: XW033E5 Introduction of Remdesivir Anti-infective into Peripheral Vein, Percutaneous Approach, New Technology Group 5 (ICD-10-PCS; 2020-05-17)
DX: U07.1 COVID-19 (principal); J12.9 Viral pneumonia, unspecified; J15.9 Unspecified bacterial pneumonia; J96.01 Acute respiratory failure with hypoxia; N40.0 Benign prostatic hyperplasia without lower urinary tract symptoms
CPT/HCPCS: 36415; 71045; 80048; 80053; 83735; 84100; 85025; 87040; 93005; 99284; J0696; J1100; J1650; J1940; J7050; J7121

== ENCOUNTER 2020-06-15 16:13 | Inpatient (IN) | payer MEDICARE ==
[~2020-06-15] VITALS: Ht 170.2 cm; Wt 61.4 kg
[2020-06-15] MEDS ORDERED: ASPIRIN 81 MG CHEW TAB PO ONE (16:45)
[2020-06-15] MEDS ORDERED: DEXAMETHASONE SOD PHOS INJ 4 MG/ML VIAL IV ONE (17:00)
[2020-06-15] MEDS ORDERED: AZITHROMYCIN 500MG/NS 250 ML 250 ML IV ONE (17:00)
[2020-06-15 17:05] LABS: BASOPHILS # (AUTO) 0.1 (0.0-0.1); BASOPHILS % 0.6 % (0.0-1.0); EOSINOPHILS # (AUTO) 0.3 (0.0-0.4); EOSINOPHILS % 2.9 % (0.0-6.0); HEMATOCRIT 46.9 % (38.2-49.6); HEMOGLOBIN 16.1 g/dL (14.0-18.0); LYMPHOCYTES # (AUTO) 1.8 (1.0-3.2); LYMPHOCYTES % 17.7 % (18.0-39.1); MEAN CORPUSCULAR HEMOGLOBIN 30.4 pg (28-32); MEAN CORPUSCULAR HGB CONC 34.3 g/dL (31-35); MEAN CORPUSCULAR VOLUME 88.5 fL (81-99); MONOCYTES % 9.6 % (4.4-11.3); NEUTROPHILS # (AUTO) 6.7 (2.1-6.9); NEUTROPHILS % 67.1 % (38.7-80.0); PLATELET COUNT 328 x10e3/uL (140-360); RED CELL DISTRIBUTION WIDTH 13.2 % (11.7-14.4)
[2020-06-15 17:18] LABS: ALANINE AMINOTRANSFERASE 40 IU/L (0-55); ALBUMIN 3.2 g/dL (3.5-5.0); ALBUMIN/GLOBULIN RATIO 0.8 (0.8-2.0); ALKALINE PHOSPHATASE 90 IU/L (40-150); ANION GAP 13.9 mmol/L (8-16); BLOOD UREA NITROGEN 10 mg/dL (7-26); BUN/CREATININE RATIO 13 (6-25); CARBON DIOXIDE 29 mmol/L (22-29); CHLORIDE 96 mmol/L (98-107); CREATINE KINASE 36 IU/L (30-200); CREATININE, SERUM 0.79 mg/dL (0.72-1.25); EST GLOMERULAR FILTRATION RATE > 60 ML/MIN (60-); GLUCOSE 117 mg/dL (74-118); POTASSIUM 3.9 mmol/L (3.5-5.1); SODIUM 135 mmol/L (136-145)
[2020-06-15] MEDS: PIPER-TAZ 3.375 GM 50 ML IV SCH (18:06)
[2020-06-15] MEDS ORDERED: SODIUM CHLORIDE 0.9% 50ML 50 ML ONE (18:36)
[2020-06-15] MEDS ORDERED: IOPAMIDOL 370 MG/ML 200 ML INFUS..BTL INJ ONE (18:36)
[2020-06-15] MEDS ORDERED: SODIUM CHLORIDE 0.9% 500ML 500 ML IV ONE (21:45)
[2020-06-16] VITALS (8 sets, daily range): BP systolic 104–132; BP diastolic 64–82
[2020-06-16] MEDS: METOPROLOL TARTRATE INJ 1 MG/ML VIAL IV ONE ×2 (00:15→00:39)
[2020-06-16] MEDS: PIPER-TAZ 3.375 GM 50 ML IV SCH ×6 (00:20→23:54)
[2020-06-16] MEDS ORDERED: PANTOPRAZOLE SO20 MG PO (01:49)
[2020-06-16] MEDS ORDERED: ROBITUSSIN COU118 M4 PO (01:49)
[2020-06-16] MEDS ORDERED: PROAIR DIGIHAL90 MCG INH (01:49)
[2020-06-16] MEDS ORDERED: SODIUM CHLORIDE 0.9% 250ML 250 ML ONE (04:39)
[2020-06-16 07:59] LABS: BASOPHILS % 0.2 % (0.0-1.0); EOSINOPHILS % 0.1 % (0.0-6.0); HEMOGLOBIN 15.3 g/dL (14.0-18.0); LYMPHOCYTES # (AUTO) 0.9 (1.0-3.2); MEAN CORPUSCULAR HGB CONC 34.8 g/dL (31-35); MEAN CORPUSCULAR VOLUME 89.2 fL (81-99); MONOCYTES # (AUTO) 0.8 (0.2-0.8); MONOCYTES % 6.5 % (4.4-11.3); NEUTROPHILS # (AUTO) 10.8 (2.1-6.9); NEUTROPHILS % 84.2 % (38.7-80.0); PLATELET COUNT 323 x10e3/uL (140-360); RED BLOOD COUNT 4.93 x10e6/uL (4.3-5.7)
[2020-06-16] MEDS ORDERED: ALBUTEROL SULFATE HFA 8GM INHALATION AEROSOL INH PRN (08:15)
[2020-06-16 08:27] LABS: ALANINE AMINOTRANSFERASE 51 IU/L (0-55); ALBUMIN 2.8 g/dL (3.5-5.0); ALBUMIN/GLOBULIN RATIO 0.8 (0.8-2.0); ALKALINE PHOSPHATASE 76 IU/L (40-150); ANION GAP 9.3 mmol/L (8-16); BLOOD UREA NITROGEN 13 mg/dL (7-26); BUN/CREATININE RATIO 18 (6-25); CALCIUM 8.4 mg/dL (8.4-10.2); CARBON DIOXIDE 33 mmol/L (22-29); CHLORIDE 99 mmol/L (98-107); CREATININE, SERUM 0.72 mg/dL (0.72-1.25); EST GLOMERULAR FILTRATION RATE > 60 ML/MIN (60-); GLUCOSE 127 mg/dL (74-118); POTASSIUM 4.3 mmol/L (3.5-5.1); SODIUM 137 mmol/L (136-145)
[2020-06-16] MEDS ORDERED: HYDROCHLOROTHIAZIDE 25 MG TAB PO SCH (09:00)
[2020-06-16] MEDS: NON-FORMULARY MEDICATION (Mu-Vits-Min Th/Lycopene/Lutein (Centrum Silver Tablet) 1 TAB) PO SCH (09:00)
[2020-06-16 09:15] LABS: CREATINE KINASE 30 IU/L (30-200)
[2020-06-16] MEDS: CHOLECALCIFEROL 1,000 UNIT TAB PO SCH (11:00)
[2020-06-16] MEDS: PANTOPRAZOLE SOD 40 MG TABEC PO SCH (11:00)
[2020-06-16] MEDS: TAMSULOSIN HCL 0.4 MG CAP PO SCH (11:00)
[2020-06-16] MEDS: GUAIFENESIN/CODEINE 10 ML CUP PO PRN ×2 (11:00→20:50)
[2020-06-16] MEDS ORDERED: GUAIFENESIN/DEXTROMETHORPHAN LIQD 5 ML UDC PO SCH (12:00)
[2020-06-16 14:38] LABS: CREATINE KINASE 34 IU/L (30-200)
[2020-06-17] VITALS (8 sets, daily range): BP systolic 102–142; BP diastolic 58–77
[2020-06-17] MEDS: PIPER-TAZ 3.375 GM 50 ML IV SCH ×3 (05:28→17:29)
[2020-06-17] MEDS: NON-FORMULARY MEDICATION (Mu-Vits-Min Th/Lycopene/Lutein (Centrum Silver Tablet) 1 TAB) PO SCH (08:55)
[2020-06-17] MEDS: GUAIFENESIN/CODEINE 10 ML CUP PO PRN ×4 (09:01→22:38)
[2020-06-17] MEDS: TAMSULOSIN HCL 0.4 MG CAP PO SCH (09:01)
[2020-06-17] MEDS: PANTOPRAZOLE SOD 40 MG TABEC PO SCH (09:01)
[2020-06-17] MEDS: CHOLECALCIFEROL 1,000 UNIT TAB PO SCH (09:01)
[2020-06-18] VITALS: BP 111/64
[2020-06-18] MEDS ORDERED: SODIUM CHLORIDE 0.9% 250ML 250 ML ONE (00:48)
[2020-06-18 04:00] VITALS: BP 120/72
[2020-06-18] MEDS: PIPER-TAZ 3.375 GM 50 ML IV SCH ×3 (05:20→13:04)
[2020-06-18] MEDS: GUAIFENESIN/CODEINE 10 ML CUP PO PRN ×2 (05:20→15:12)
[2020-06-18 08:26] VITALS: BP 177/76
[2020-06-18 08:48] VITALS: BP 127/76
[2020-06-18] MEDS: NON-FORMULARY MEDICATION (Mu-Vits-Min Th/Lycopene/Lutein (Centrum Silver Tablet) 1 TAB) PO SCH (09:00)
[2020-06-18] MEDS: PANTOPRAZOLE SOD 40 MG TABEC PO SCH (09:13)
[2020-06-18] MEDS: TAMSULOSIN HCL 0.4 MG CAP PO SCH (09:13)
[2020-06-18] MEDS: CHOLECALCIFEROL 1,000 UNIT TAB PO SCH (09:14)
[2020-06-18 12:55] VITALS: BP 143/62
[2020-06-18] MEDS ORDERED: AZITHROMYCIN250 MG PO (14:58)
[2020-06-18] MEDS ORDERED: BROMFED DM COU118 ML PO (15:05)
[2020-06-18] MEDS ORDERED: OBREDON 2.5-20118 ML PO (15:06)
[2020-06-18 16:26] VITALS: BP 132/76
== END 2020-06-18 17:15 | disposition home or self-care (01) | DRG 193 ==
LOC: ER 16:55 → ERHOLD 21:41 → MED/SURG2 06-16 00:56
PROVIDERS: ADMIT Internal Medicine; ATTEND Internal Medicine
DX: J15.9 Unspecified bacterial pneumonia (principal); J96.01 Acute respiratory failure with hypoxia; J84.89 Other specified interstitial pulmonary diseases; I10 Essential (primary) hypertension; B94.8 Sequelae of other specified infectious and parasitic diseases; N40.0 Benign prostatic hyperplasia without lower urinary tract symptoms; Z20.828 Contact with and (suspected) exposure to other viral communicable diseases
CPT/HCPCS: 36415; 71045; 71260; 80053; 82550; 82553; 83605; 83880; 84443; 84484; 85025; 87040; 93005; 93306; 99284; J1100; J2543; J7040; J7050; Q9967; U0002

== ENCOUNTER → 2020-09-01 | Outpatient (CLI) | payer MEDICARE ==
[~2020-09-01] MED LIST changes: +AZITHROMYCIN250 MG PO; +BROMFED DM COU118 ML PO; +OBREDON 2.5-20118 ML PO; +PANTOPRAZOLE SO20 MG PO; +PROAIR DIGIHAL90 MCG INH; +ROBITUSSIN COU118 M4 PO
== END ==
LOC: RAD 10:33
PROVIDERS: ATTEND Internal Medicine
DX: R05 Cough (principal); Z86.16 Personal history of COVID-19
CPT/HCPCS: 71046

== ENCOUNTER → 2020-09-01 | Outpatient (CLI) | payer MEDICARE | LOC: RAD 10:37 | PROVIDERS: ATTEND Urology | DX: N20.0 Calculus of kidney (principal) ==

== ENCOUNTER → 2020-10-07 | Outpatient (CLI) | payer MEDICARE | LOC: RAD 10:43 | PROVIDERS: ATTEND Internal Medicine Pulmonary Disease | DX: J98.4 Other disorders of lung (principal); R06.00 Dyspnea, unspecified | CPT/HCPCS: 71046 ==

== ENCOUNTER → 2020-10-07 | Outpatient (CLI) | payer MEDICARE | LOC: RAD 10:48 | PROVIDERS: ATTEND Urology | DX: R39.14 Feeling of incomplete bladder emptying (principal) | CPT/HCPCS: 74018 ==

== ENCOUNTER → 2021-11-15 | Outpatient (CLI) | payer MEDICARE | LOC: RAD 09:27 | PROVIDERS: ATTEND Urology | DX: N20.0 Calculus of kidney (principal) | CPT/HCPCS: 74018 ==

== ENCOUNTER → 2022-08-18 | Outpatient (CLI) | payer MEDICARE | LOC: RAD 10:51 | PROVIDERS: ATTEND Urology | DX: N20.0 Calculus of kidney (principal) | CPT/HCPCS: 74018 ==

== ENCOUNTER → 2023-07-31 | Outpatient (REF) | payer MEDICARE | LOC: RAD 10:43 | PROVIDERS: ATTEND Urology | DX: N20.0 Calculus of kidney (principal) | CPT/HCPCS: 74018 ==

== ENCOUNTER → 2024-08-21 | Outpatient (REF) | payer MEDICARE | LOC: RAD 11:43 | PROVIDERS: ATTEND Urology | DX: N20.0 Calculus of kidney (principal) | CPT/HCPCS: 74018 ==